=== PATIENT | female | born 1955 | race Caucasian/White ===

== ENCOUNTER → 2016-03-01 | Outpatient (CLI) | payer MEDICARE ==
[~2016-03-01] MED LIST: AMLO5 PO; ATEN1TAB74 PO; ATEN25TA PO; ATEN50TA PO; ATOR10 PO; COUM1TAB PO; DENO60P SQ; DEXI60CA PO; DEXI60CA3 PO; ENOX60P SQ; ENOX80P SQ; ESZO3TAB4 PO; LEVO88TA2 PO; MAGN1TAB14 PO; MAGN500T4 PO; NITR0.4S SL; PLAV75TA PO; PLAV75TA29 PO; PRAV20TA2 PO; TRAM50 PO; TRAM50TA PO; VITA100020 IM
[2016-03-01 11:55] LABS: INTERNATIONAL NORMALIZED RATIO 2.4 RATIO; PROTHROMBIN TIME - PATIENT 27.1 SEC (9.8-11.6)
== END ==
LOC: CLAB 11:28
DX: I82.403 Acute embolism and thrombosis of unspecified deep veins of lower extremity, bilateral (principal)
CPT/HCPCS: 36415; 85610

== ENCOUNTER → 2016-03-17 | Outpatient (CLI) | payer MEDICARE ==
[2016-03-17 15:27] LABS: AUTOMATED NEUTROPHIL # 3.9 TH/MM3 (1.8-7.7); BASOPHIL % 0.5 % (0.0-2.0); EOSINOPHIL # 0.2 TH/MM3 (0-0.4); EOSINOPHIL % 1.9 % (0.0-4.0); HEMATOCRIT 46.7 % (35.0-46.0); HEMO FLAGS DIFF FINAL; LYMPH % 47.4 % (9.0-44.0); LYMPHOCYTE # 4.6 TH/MM3 (1.0-4.8); MEAN CORPUSCULAR HEMOGLOBIN 27.1 PG (27.0-34.0); MEAN CORPUSCULAR HGB CONC 31.5 % (32.0-36.0); MONO % 9.9 % (0.0-8.0); NEUT % 40.3 % (16.0-70.0); PLATELET COUNT 296 TH/MM3 (150-450); RED BLOOD COUNT 5.43 MIL/MM3 (4.00-5.30); RED CELL DISTRIBUTION WIDTH 13.8 % (11.6-17.2); WHITE BLOOD COUNT 9.7 TH/MM3 (4.0-11.0)
[2016-03-17 15:28] LABS: APTT (PATIENT) 46.2 SEC (24.3-30.1); INTERNATIONAL NORMALIZED RATIO 2.4 RATIO; PROTHROMBIN TIME - PATIENT 27.9 SEC (9.8-11.6)
== END ==
LOC: CLAB 12:05
PROVIDERS: ATTEND Internal Medicine Gastroenterology
DX: R93.2 Abnormal findings on diagnostic imaging of liver and biliary tract (principal); R76.8 Other specified abnormal immunological findings in serum; R94.5 Abnormal results of liver function studies; Z01.818 Encounter for other preprocedural examination; Z79.01 Long term (current) use of anticoagulants
CPT/HCPCS: 36415; 85025; 85610; 85730

== ENCOUNTER 2016-03-21 07:50 | Day surgery (SDC) | payer MEDICARE ==
[~2016-03-21] VITALS: Ht 152.4 cm; Wt 70.0 kg
[2016-03-21] VITALS (8 sets, daily range): BP systolic 103–184; BP diastolic 47–94; PULSE 79–94; RESP 20; TEMP 97.6–97.8; O2SAT 97–100
[~2016-03-21 07:50] MED LIST changes: -AMLO5 PO; -ATEN25TA PO; -ATEN50TA PO; -DEXI60CA PO; -ENOX60P SQ; -ENOX80P SQ; -ESZO3TAB4 PO; -MAGN1TAB14 PO; -PLAV75TA29 PO; -PRAV20TA2 PO; -TRAM50TA PO
[2016-03-21] MEDS ORDERED: TRAM50TA PO (08:13)
[2016-03-21] MEDS ORDERED: ATEN50TA PO (08:13)
[2016-03-21] MEDS ORDERED: MAGN1TAB14 PO (08:13)
[2016-03-21] MEDS ORDERED: LEVO88TA2 PO (08:13)
[2016-03-21] MEDS ORDERED: DENO60P SQ (08:13)
[2016-03-21] MEDS ORDERED: NITR0.4S SL (08:13)
[2016-03-21] MEDS ORDERED: DEXI60CA PO (08:13)
[2016-03-21] MEDS ORDERED: COUM1TAB PO (08:13)
[2016-03-21] MEDS ORDERED: PLAV75TA29 PO (08:13)
[2016-03-21] MEDS ORDERED: ENOX60P SQ (08:16)
[2016-03-21 08:51] LABS: INTERNATIONAL NORMALIZED RATIO 1.6 RATIO; PROTHROMBIN TIME - PATIENT 18.1 SEC (9.8-11.6)
[2016-03-21] MEDS ORDERED: LIDOCAINE 1%/EPINEPHrine 1:100,000 SOLN 20 ML VIAL ONE (09:20)
[2016-03-21] MEDS ORDERED: fentaNYL CITRATE 250 MCG/5 ML AMP ONE (09:45)
[2016-03-21] MEDS ORDERED: MIDAZOLAM HCL 5 MG/5 ML VIAL ONE (09:45)
[2016-03-21] MEDS ORDERED: THROMBIN (TOPICAL) 5,000 UNIT VIAL ONE (09:45)
[2016-03-21] MEDS ORDERED: SODIUM CHLOR 0.9% 1000 ML IV SCH (10:00)
--- NOTE | 2016-03-21 12:29 | RADRPT ---
EXAM DATE/TIME: 03/21/2016 10:00 [facility] COMPARISON: No previous studies available for comparison. INDICATIONS : Liver biopsy. Elevated LFT's. Abnormal ultrasound. SEDATION TIME: 20 minutes BIOPSY SITE: Liver MEDICATION(S): 1.) 4 mg midazolam (Versed) IV 2.) 200 mcg fentanyl (Sublimaze) IV DEVICE(S): 1.) 18 gauge BioPince needle MEDICAL HISTORY : Pancreatitis. Deep venous thrombosis. Gastroesophageal reflux disease. Hodgkins lymphoma. SURGICAL HISTORY : Cholecystectomy Splenectomy. ENCOUNTER: Initial ACUITY: 1 day PAIN SCORE: 0/10 LOCATION: Liver A total of one core specimen(s) were obtained and sent to the laboratory for pathologic evaluation. PROCEDURE: 1. CT guided liver biopsy. The patient has asymmetric history of deep venous thrombosis and cardiac stent. INR preprocedure was 1.7 on Lovenox bridge. We had long discussion about holding the medication for one more day. I th ink the risk its leads the benefit. We agreed to proceed. Prior to the procedure informed consent w as obtained. Any appropriate prior imaging studies were reviewed. The site was prepped in a sterile fashion. Full sterile technique was used, including cap, mask, jonah rile gloves and gown and a large sterile sheet. Hand hygiene and 2% chlorhexidine and/or betadine/al cohol prep was utilized per protocol for cutaneous antisepsis. The skin and subcutaneous tissues wer e infiltrated with local anesthetic solution. With CT guidance the previously identified target was localized. Biopsy was performed using the presc ribed needle as above. Adequate hemostasis was obtained with compression at the puncture site. Follow-up CT scan reveals no hemorrhage. The patient tolerated the procedure well and there were no complications. The patient was returned to the Radiology Outpatient Unit in stable condition. CONCLUSION: Uncomplicated CT guided biopsy. Patient has an allergy to morphine and received fentanyl without issues. Bernardo Myrick MD FACR on March 21, 2016 at 12:25 Board Certified Radiologist. This report was verified electronically.
== END 2016-03-21 14:20 | disposition home or self-care (01) ==
LOC: HRAD 07:50 → HRIP 07:51 → EDSTATUS 08:00 → HRAD 14:20
PROVIDERS: ATTEND Internal Medicine Gastroenterology
DX: R93.2 Abnormal findings on diagnostic imaging of liver and biliary tract (principal); Z86.718 Personal history of other venous thrombosis and embolism; Z79.01 Long term (current) use of anticoagulants; I10 Essential (primary) hypertension; C81.90 Hodgkin lymphoma, unspecified, unspecified site
CPT/HCPCS: 47000; 77012; 85610; 85730; 88307; 88313; J2250; J3010

== ENCOUNTER → 2016-04-15 | Outpatient (CLI) | payer MEDICARE ==
[~2016-04-15] MED LIST changes: +AMLO5 PO; -ATEN1TAB74 PO; +ATEN25TA PO; +ATEN50TA PO; -ATOR10 PO; +DEXI60CA PO; -DEXI60CA3 PO; +ENOX60P SQ; +ENOX80P SQ; +ESZO3TAB4 PO; +MAGN1TAB14 PO; -PLAV75TA PO; +PLAV75TA29 PO; +PRAV20TA2 PO; -TRAM50 PO; +TRAM50TA PO; -VITA100020 IM
[2016-04-15 11:05] LABS: PROTHROMBIN TIME - PATIENT 22.7 SEC (9.8-11.6)
== END ==
LOC: CLAB 10:31
DX: I82.403 Acute embolism and thrombosis of unspecified deep veins of lower extremity, bilateral (principal)
CPT/HCPCS: 36415; 85610

== ENCOUNTER → 2016-05-02 | Outpatient (CLI) | payer MEDICARE ==
[2016-05-02 10:33] LABS: AUTOMATED NEUTROPHIL # 3.9 TH/MM3 (1.8-7.7); BASOPHIL # 0.1 TH/MM3 (0-0.2); BASOPHIL % 0.7 % (0.0-2.0); EOSINOPHIL # 0.2 TH/MM3 (0-0.4); EOSINOPHIL % 2.6 % (0.0-4.0); HEMO FLAGS DIFF FINAL; LYMPH % 38.1 % (9.0-44.0); LYMPHOCYTE # 2.9 TH/MM3 (1.0-4.8); MEAN CELL VOLUME 85.3 FL (80.0-100.0); MEAN CORPUSCULAR HEMOGLOBIN 27.5 PG (27.0-34.0); MEAN CORPUSCULAR HGB CONC 32.2 % (32.0-36.0); MONO % 8.3 % (0.0-8.0); NEUT % 50.3 % (16.0-70.0); PLATELET COUNT 339 TH/MM3 (150-450); RED BLOOD COUNT 5.28 MIL/MM3 (4.00-5.30); RED CELL DISTRIBUTION WIDTH 14.8 % (11.6-17.2); WHITE BLOOD COUNT 7.7 TH/MM3 (4.0-11.0)
[2016-05-02 10:36] LABS: INTERNATIONAL NORMALIZED RATIO 1.9 RATIO
[2016-05-02 10:56] LABS: ANION GAP 8 MEQ/L (5-15); AST (GOT) 24 U/L (15-37); BICARBONATE 26.1 MEQ/L (21.0-32.0); BLOOD UREA NITROGEN 16 MG/DL (7-18); CHLORIDE 108 MEQ/L (98-107); GLOMERULAR FILTRATION RATE 63 ML/MIN (>89); GLUCOSE,FASTING 116 MG/DL (74-99); POTASSIUM 4.4 MEQ/L (3.5-5.1); SODIUM (NA) 142 MEQ/L (136-145)
[2016-05-02 11:07] LABS: ALKALINE PHOSPHATASE 63 U/L (45-117); ALT (GPT) 28 U/L (10-53); HDL CHOLESTEROL 61.1 MG/DL (40.0-60.0); LDL CHOLESTEROL 117 MG/DL (0-99); TOTAL BILIRUBIN ADULT 0.4 MG/DL (0.2-1.0)
== END ==
LOC: CLAB 09:51
DX: I82.5Z9 Chronic embolism and thrombosis of unspecified deep veins of unspecified distal lower extremity (principal); I82.403 Acute embolism and thrombosis of unspecified deep veins of lower extremity, bilateral; E78.5 Hyperlipidemia, unspecified; E03.9 Hypothyroidism, unspecified
CPT/HCPCS: 36415; 80053; 80061; 84443; 85025; 85610

== ENCOUNTER → 2016-05-24 | Outpatient (CLI) | payer MEDICARE ==
[2016-05-24 14:28] LABS: INTERNATIONAL NORMALIZED RATIO 2.3 RATIO; PROTHROMBIN TIME - PATIENT 26.5 SEC (9.8-11.6)
== END ==
LOC: CLAB 14:00
DX: I82.403 Acute embolism and thrombosis of unspecified deep veins of lower extremity, bilateral (principal)
CPT/HCPCS: 36415; 85610

== ENCOUNTER 2016-06-04 14:37 | Observation (INO) | payer MEDICARE ==
[2016-06-04] VITALS (7 sets, daily range): BP systolic 162–202; BP diastolic 77–90; PULSE 73–87; RESP 16–19; TEMP 97.6–98.3; O2SAT 95–100
[~2016-06-04] VITALS: Ht 152.4 cm; Wt 70.0 kg
[~2016-06-04 14:37] MED LIST changes: -AMLO5 PO; -ATEN25TA PO; -ENOX80P SQ; -ESZO3TAB4 PO; -MAGN500T4 PO; -PRAV20TA2 PO
--- NOTE | 2016-06-04 15:09 | PD ---
HPI Chief Complaint: Chest Pain Time Seen by Provider: 15:04 Travel History International Travel<30 days: No Contact w/Intl Traveler<30days: No Traveled to known affect area: No History of Present Illness HPI Patient comes in complaining of sharp stabbing substernal chest pain that began yesterday. Pain is worse with exertion. Patient has tried taking her medication and nitroglycerin as well as her acid reflux medication and antacids without improvement of her symptoms. Patient denies any nausea, vomiting, diarrhea, fevers, cough, headache, numbness or tingling anywhere, trauma, back pain, or neck pain. Patient reports 2 previous MIs with stent placement. States this does not feel like her similar heart attack. Patient states she's taken all of her medication as prescribed. 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 Patient reports that her had pneumonia last week. Denies any known sick contacts. Patient's only other reported symptom is his losing her voice. PFSH Past Medical History Hx Anticoagulant Therapy: Yes (COUMADIN, PLAVIX) Asthma: Yes Blood Disorders: Yes (HX OF DVT'S) Anxiety: No Depression: No Heart Rhythm Problems: Yes (EXTRA BEATS) Cancer: Yes (HODGKIN'S LYMPHOMA) Cardiac Catheterization: Yes (STENT) Cardiovascular Problems: Yes (1 STENT) High Cholesterol: Yes Chemotherapy: No Chest Pain: Yes Congestive Heart Failure: No COPD: No Cerebrovascular Accident: No Diabetes: No Diminished Hearing: No Deep Vein Thrombosis: Yes (BILATERAL LOWER EXTS) Endocrine: Yes Gastrointestinal Disorders: Yes (GERD, ULCER) GERD: Yes Glaucoma: No Genitourinary: Yes (KIDNEY STONES) Headaches: Yes Hepatitis: No Hiatal Hernia: No Heparin Induced Thrombocytopen: Yes Hypertension: Yes Immune Disorder: Yes (IMMUNOCOMPROMISED SINCE SPLEEN REMOVED) Implanted Vascular Access Dvce: Yes Kidney Stones: Yes Musculoskeletal: No Neurologic: Yes (NEUROPATHY IN LEGS) Psychiatric: No Reproductive: No Respiratory: Yes (ASTHMA) Immunizations Current: Yes Migraines: Yes Myocardial Infarction: Yes Pancreatitis: Yes Radiation Therapy: Yes Renal Failure: No Seizures: No Sickle Cell Disease: No Sleep Apnea: No Thyroid Disease: Yes (HYPOTHYROID) Ulcer: Yes Menopausal: Yes Past Surgical History Abdominal Surgery: Yes (SPLENCTOMY) AICD: No Appendectomy: No Arteriovenous Shunt: No Body Medical Devices: RODS AND SCREWS IN BACK,SINUS SX (TITANIUM)CLIPS -HODG Cholecystectomy: Yes Coronary Artery Bypass Graft: No Endocrine Surgery: Yes (HODGKINS TUMORS REMOVED) Genitourinary Surgery: Yes (REMOVAL OF KIDNEY STONES) Gynecologic Surgery: Yes (HYSTERECTOMY) Hysterectomy: Yes Insulin Pump: No Joint Replacement: Yes (Rods from s1 and L5) Neurologic Surgery: No Pacemaker: No Other Surgery: Yes (SPLEEN REMOVED, GB REMOVED, HYSTERECTOMY, BACK SURGERY, SINUS SURGERIES, ) Family History Family Myocardial Infarction: Yes (MOTHER HAD A MO) Social History Alcohol Use: No Tobacco Use: No Substance Use: No Allergies-Medications (Allergen,Severity, Reaction): Coded Allergies: Aspirin (Verified Allergy, Severe, ASTHMA, 06/04/16) Compazine (Verified Allergy, Severe, LOSS OF FACIAL MUSCLE CONTROL, 06/04/16 ) Contrast Media (Verified Allergy, Severe, Hives, 06/04/16) Cortisone (Verified Allergy, Severe, Hives, 06/04/16) Percocet (Verified Allergy, Severe, 06/04/16) PT STATES PANCREATITIS Levaquin (Verified Allergy, Mild, AGGRAVATES LIVER, 06/04/16) Morphine (Verified Allergy, Mild, Hives, 06/04/16) LOCALIZED AT INJECTION SITE. Bee Sting (Verified Allergy, Unknown, HIVES AND SWELLING, 06/04/16) Reported Meds & Prescriptions Reported Meds & Active Scripts Active Reported Magnesium 500 Mg Tab 500 Mg PO HS Prolia Inj (Denosumab) 60 Mg/Ml Inj 60 Mg SQ Q180D Nitrostat SL (Nitroglycerin) 0.4 Mg Subl 0.4 Mg SL DIRECTED PRN 1 tablet under the tongue as needed for chest pain. Repeat every 5 minutes for a total of 3 DOSES or call 911 if NO relief. Levothyroxine (Levothyroxine Sodium) 88 Mcg Tab 88 Mcg PO DAILY Tramadol (Tramadol HCl) 50 Mg Tab 50 Mg PO BID PRN Atenolol 50 Mg Tab 50 Mg PO DAILY @ 1800 Dexilant (Dexlansoprazole) 60 Mg Cap 60 Mg PO DAILY Coumadin (Warfarin) 1 Mg Tab 1 Mg PO MOWEFRSA @ 1600 Plavix (Clopidogrel Bisulfate) 75 Mg Tab 75 Mg PO DAILY Review of Systems Except as stated in HPI: all other systems reviewed are Neg Physical Exam Narrative GENERAL: Well-developed, overly nourished, in no acute distress, and non-ill appearing. SKIN: Focused skin assessment warm and dry. HEAD: Atraumatic. Normocephalic. EYES: Pupils equal and round. EOMI. No scleral icterus. No injection or drainage. ENT: No nasal bleeding or discharge. Mucous membranes pink and moist. Posterior pharynx nonerythematous and without exudate. Uvula is midline. NECK: Trachea midline. No JVD. Supple. No nuclear rigidity. No cervical lymphadenopathy. CARDIOVASCULAR: Regular rate and rhythm. No murmur appreciated. RESPIRATORY: No accessory muscle use. No respiratory distress. Clear to auscultation. Breath sounds equal bilaterally. GASTROINTESTINAL: Abdomen soft, non-tender, nondistended. Hepatic and splenic margins not palpable. Normal bowel sounds 4. No pulsatile mass. MUSCULOSKELETAL: No obvious deformities. No clubbing. No cyanosis. No edema. Full range of motion. NEUROLOGICAL: Awake and alert. No obvious cranial nerve deficits. Motor grossly within normal limits. Horse speech. PSYCHIATRIC: Appropriate mood and affect; insight and judgment normal. Data Data Last Documented VS Vital Signs Date Time Temp Pulse Resp B/P Pulse Ox O2 Delivery O2 Flow Rate FiO2 06/04/16 16:58 78 16 173/79 97 Room Air 06/04/16 14:40 98.3 Orders Electrocardiogram (06/04/16 15:02) Basic Metabolic Panel (Bmp) (06/04/16 15:02) Ckmb (Isoenzyme) Profile (06/04/16 15:02) Complete Blood Count With Diff (06/04/16 15:02) Magnesium (Mg) (06/04/16 15:02) Prothrombin Time / Inr (Pt) (06/04/16 15:02) Act Partial Throm Time (Ptt) (06/04/16 15:02) Troponin I (06/04/16 15:02) Chest, Single Ap (06/04/16 15:02) Ecg Monitoring (06/04/16 15:02) Bilateral Bp Monitoring (06/04/16 15:02) Iv Access Insert/Monitor (06/04/16 15:02) Oximetry (06/04/16 15:02) Oxygen Administration (06/04/16 15:02) Vascular Access Team Consult PRN (06/04/16 15:15) Vascular Poc Ultrasound (06/04/16 ) Ondansetron Inj (Zofran Inj) (06/04/16 16:45) Hydromorphone Pf Inj (Dilaudid Pf Inj) (06/04/16 16:45) Sodium Chlorid 0.9% 500 Ml Inj (Ns 500 M (06/04/16 17:45) Consult Cardiology (06/04/16 ) Admit Order (Ed Use Only) (06/04/16 18:11) Place In Observation (06/04/16 ) Vital Signs (Adult) Q4H (06/04/16 18:10) Robotic Toy Inventor / Telemetry .CONTINUOUS (06/04/16 18:10) Intake + Output JOSIAH.QSHIFT (06/04/16 18:10) Diet Heart Healthy (06/04/16 Dinner) Sodium Chloride 0.9% Flush (Ns Flush) (06/04/16 18:15) Sodium Chloride 0.9% Flush (Ns Flush) (06/04/16 21:00) Acetaminophen (Tylenol) (06/04/16 18:15) Ondansetron Inj (Zofran Inj) (06/04/16 18:15) Troponin I (06/04/16 18:10) Troponin I (06/05/16 00:10) Resp Oxygen Lonny C Titrat 1-4 L (06/04/16 ) Heparin Inj (Heparin Inj) (06/04/16 20:00) Naloxone Inj (Narcan Inj) (06/04/16 18:15) Npo After Midnight W/ Po Meds (06/04/16 Dinner) Labs Laboratory Tests Test 06/04/16 16:24 White Blood Count 13.9 TH/MM3 Red Blood Count 5.18 MIL/MM3 Hemoglobin 14.1 GM/DL Hematocrit 42.8 % Mean Corpuscular Volume 82.5 FL Mean Corpuscular Hemoglobin 27.1 PG Mean Corpuscular Hemoglobin 32.9 % Concent Red Cell Distribution Width 14.8 % Platelet Count 320 TH/MM3 Mean Platelet Volume 9.8 FL Neutrophils (%) (Auto) 65.4 % Lymphocytes (%) (Auto) 26.4 % Monocytes (%) (Auto) 7.9 % Eosinophils (%) (Auto) 0.2 % Basophils (%) (Auto) 0.1 % Neutrophils # (Auto) 9.1 TH/MM3 Lymphocytes # (Auto) 3.7 TH/MM3 Monocytes # (Auto) 1.1 TH/MM3 Eosinophils # (Auto) 0.0 TH/MM3 Basophils # (Auto) 0.0 TH/MM3 CBC Comment DIFF FINAL Differential Comment Prothrombin Time 29.2 SEC Prothromb Time International 2.5 RATIO Ratio Activated Partial 32.7 SEC Thromboplast Time Sodium Level 140 MEQ/L Potassium Level 4.5 MEQ/L Chloride Level 106 MEQ/L Carbon Dioxide Level 27.7 MEQ/L Anion Gap 6 MEQ/L Blood Urea Nitrogen 33 MG/DL Creatinine 1.18 MG/DL Estimat Glomerular Filtration 46 ML/MIN Rate Random Glucose 94 MG/DL Calcium Level 9.1 MG/DL Magnesium Level 2.4 MG/DL Total Creatine Kinase 57 U/L Troponin I 0.03 NG/ML MDM Medical Decision Making Medical Screen Exam Complete: Yes Emergency Medical Condition: Yes Interpretation(s) EKG reviewed by Dr. Bañuelos showed a normal sinus rhythm with a ventricular rate 80. No STEMI. Differential Diagnosis Acute cardiac syndrome, atypical chest pain, pneumonia, pericarditis, electrolyte abnormality, other Narrative Course Patient requesting something for pain and states she is unable to take morphine , but has had Dilaudid in the past without any adverse side effects. 173 Patient reassessed reports much improvement of chest pain. Discussed all findings and plan care of with patient, who is agreeable for admission. All questions were answered. Discussed patient with Dr. Goldman, who recommends contacting patient's school operations manager prior to admission. Physician Communication Physician Communication [id number] Bolanos, patient's school operations manager, who recommend inpatient medicine with him as a consult for further evaluation of patient's chest pain today. [id number] Brennan, who is agreeable to admit the patient. Diagnosis Primary Impression: Chest pain Qualified Code: R07.9 - Chest pain, unspecified type Admitting Information Admitting Physician Requests: Observation Condition: Stable Jeremy Rolon Jun 04, 2016 15:09
[2016-06-04] MEDS ORDERED: SODIUM CHLORIDE 0.9% FLUSH 10 ML FLUSH IVF PRN (15:15)
[2016-06-04] MEDS ORDERED: MAGN500T4 PO (15:35)
--- NOTE | 2016-06-04 16:14 | RADRPT ---
EXAM DATE/TIME: 06/04/2016 15:36 [facility] COMPARISON: CHEST SINGLE AP, November 24, 2015, 12:24. INDICATIONS : Chest pain and shortness of breath. MEDICAL HISTORY : Myocardial infarction. Radiation for Hodgkin's. SURGICAL HISTORY : Coronary artery stent. ENCOUNTER: Initial ACUITY: 1 day PAIN SCORE: 5/10 LOCATION: chest FINDINGS: A single view of the chest demonstrates the lungs to be symmetrically aerated without evidence of mas s, infiltrate or effusion. The cardiomediastinal contours are unremarkable. Osseous structures are intact. CONCLUSION: No acute disease. No significant change has occurred. Reid Rich MD on June 04, 2016 at 16:12 Board Certified Radiologist. This report was verified electronically.
[2016-06-04] MEDS ORDERED: ONDANSETRON HCL 4 MG/2 ML VIAL IV PUSH ONE (16:45)
[2016-06-04] MEDS ORDERED: HYDROmorphone HCL PF 1 MG/ML VIAL IV PUSH ONE (16:45)
[2016-06-04 16:48] LABS: AUTOMATED NEUTROPHIL # 9.1 TH/MM3 (1.8-7.7); BASOPHIL % 0.1 % (0.0-2.0); EOSINOPHIL % 0.2 % (0.0-4.0); HEMATOCRIT 42.8 % (35.0-46.0); HEMO FLAGS DIFF FINAL; LYMPH % 26.4 % (9.0-44.0); LYMPHOCYTE # 3.7 TH/MM3 (1.0-4.8); MEAN CELL VOLUME 82.5 FL (80.0-100.0); MEAN CORPUSCULAR HEMOGLOBIN 27.1 PG (27.0-34.0); MEAN CORPUSCULAR HGB CONC 32.9 % (32.0-36.0); MONO % 7.9 % (0.0-8.0); NEUT % 65.4 % (16.0-70.0); PLATELET COUNT 320 TH/MM3 (150-450); RED BLOOD COUNT 5.18 MIL/MM3 (4.00-5.30); RED CELL DISTRIBUTION WIDTH 14.8 % (11.6-17.2); WHITE BLOOD COUNT 13.9 TH/MM3 (4.0-11.0)
[2016-06-04 17:00] LABS: APTT (PATIENT) 32.7 SEC (24.3-30.1); INTERNATIONAL NORMALIZED RATIO 2.5 RATIO; PROTHROMBIN TIME - PATIENT 29.2 SEC (9.8-11.6)
[2016-06-04 17:28] LABS: BICARBONATE 27.7 MEQ/L (21.0-32.0); MAGNESIUM 2.4 MG/DL (1.5-2.5)
[2016-06-04 17:29] LABS: POTASSIUM 4.5 MEQ/L (3.5-5.1)
[2016-06-04] MEDS ORDERED: SODIUM CHLORID 0.9% 500 ML INJ 500 ML IV ONE (17:45)
[2016-06-04] MEDS ORDERED: SODIUM CHLORIDE 0.9% FLUSH 10 ML FLUSH IV FLUSH PRN (18:15)
[2016-06-04] MEDS ORDERED: ONDANSETRON HCL 4 MG/2 ML VIAL IVP PRN (18:15)
[2016-06-04] MEDS ORDERED: NALOXONE HCL 0.4 MG/ML AMP IV PRN (18:15)
[2016-06-04] MEDS ORDERED: ACETAMINOPHEN 325 MG TAB PO PRN (18:15)
[2016-06-04] MEDS ORDERED: HEPARIN SODIUM - SQ 10,000 UNITS/ML VIAL SQ SCH (20:00)
[2016-06-04] MEDS ORDERED: HYDROmorphone HCL PF 1 MG/ML VIAL IV PRN (21:00)
[2016-06-04] MEDS ORDERED: SODIUM CHLOR 0.45% 1000 ML INJ 1,000 ML IV SCH (21:00)
[2016-06-04] MEDS: NITROGLYCERIN 2% OINT 1 GM PACKET TOPICAL SCH (21:13)
[2016-06-05] VITALS (7 sets, daily range): BP systolic 158–160; BP diastolic 72–74; PULSE 68–80; RESP 16–20; TEMP 98.1; O2SAT 95–97
[2016-06-05] MEDS: SODIUM CHLORIDE 0.9% FLUSH 10 ML FLUSH IV FLUSH SCH ×2 (01:16→08:03)
[2016-06-05] MEDS: NITROGLYCERIN 2% OINT 1 GM PACKET TOPICAL SCH ×2 (04:18→08:03)
[2016-06-05] MEDS ORDERED: FAMOTIDINE 20 MG/2 ML VIAL IV PUSH SCH (09:00)
--- NOTE | 2016-06-05 09:05 | MH ---
cc: BOB VILLAR MD DATE OF ADMISSION: 06/04/2016 DATE OF : 1955 CHIEF COMPLAINT Chest time. No travel in the last 30 days. HISTORY OF PRESENT ILLNESS This is a 60-year-old white female who was in her usual state of health up until approximately 2 days ago. She went to the grocery store with her and noted a weak, tired sensation. She did note some aching, went back home and rested and had no further issues. Yesterday the patient started having some midsternal chest pain. She states that the pain became worse when she had any type of exertion but also noted that the pain was non-radiating into any of her extremities or her neck. The patient denies any numbness or tingling sensation. She also denies nausea, vomiting, diarrhea, constipation, no fevers, no headache. The patient has been taking her medications as prescribed which do include Coumadin and Plavix. The patient does have a history of heart problems. She states that she had a stress test approximately a year ago without any other issues. The patient denies any dysuria. The patient also noted that 2 days ago when she had the tired aching sensation that her voice changed and she seemed to be rather hoarse for a period of time but that did clear up on its own. The patient has been taking her acid reflux medication over the past 2 days when her symptoms occur. She did note some mild dizziness when she was up walking in the grocery store two days ago but denies any syncopal episodes. PAST MEDICAL HISTORY Medical history includes: 1. History of DVTs. 2. Cardiac dysrhythmias. 3. [id number] Hodgkin's lymphoma in 1976. 4. Hyperlipidemia. 5. Asthma. 6. GERD. 7. Kidney stones. 8. Headaches. 9. Heparin-induced thrombocytopenia. 10. Hypertension. 11. Immunocompromised with previous removal of spleen. 12. Neuropathy in her legs. 13. Pancreatitis. 14. Hypothyroidism. 15. Degenerative disc disease. PAST SURGICAL HISTORY 1. Splenectomy. 2. Back surgery with rods and screws. Please note that her rods are in S1 and L5. 3. Sinus surgery. 4. Removal of kidney stones. 5. Hysterectomy. 6. Hodgkin's tumors removed. 7. Cholecystectomy. ALLERGIES ASPIRIN, BEE STINGS, COMPEZINE, CONTRAST MEDIA, CORTISONE, LEVAQUIN, MORPHINE, PERCOCET. MEDICATION Reported medications: 1. Magnesium. 2. Prolia injections. 3. Nitroglycerin sublinguinal. 4. Levothyroxine. 5. Tramadol. 6. Atenolol. 7. Dexilant. 8. Coumadin. 9. Plavix. SOCIAL HISTORY The patient is , currently lives with her . No other people in the household. Denies any use of alcohol, tobacco or illicit drugs. REVIEW OF SYSTEMS A 12 point review was done, positives noted that are mentioned in the history of present illness which includes chest pain, some Hoarseness, tired, achy, weak feeling, mild dizziness and exertional chest pain. Other systems negative or unremarkable. PHYSICAL EXAMINATION VITAL SIGNS: Temperature is 98.1, pulse 80, respirations 18, blood pressure 158/74, 02 sat 96, currently on room air. Please note that when the patient came into the emergency room her blood pressure was 174/80. GENERAL: Well-developed, well-nourished white female who looks to be her stated age, resting in the day. She is alert, oriented and a good historian. SKIN: [place], warm and dry. Turgor is normal. HEENT: Atraumatic, normocephalic. PERRLA. No scleral icterus. No drainage. Mucous membranes were pink and moist. NECK: Neck is supple. Trachea is midline. CARDIOVASCULAR: S1, S2. Heart sounds are distant but no murmurs, rubs or gallops appreciated. RESPIRATORY: Essentially clear anteriorly and posteriorly with no wheezes, rales or rhonchi. GI: Abdomen is soft, nontender, nondistended. Active bowel sounds in all four quads. MUSCULOSKELETAL: She moves all of her extremities with purpose. She has no edema. No cyanosis, no clubbing. NEUROLOGIC: Neurologically alert, oriented. Speech is clear and easy to understand. PSYCHIATRIC: Appropriate mood and affect, judgment is normal. DIAGNOSTIC DATA WBC count 13.9, RBC 5.18, hemoglobin 14.1, hematocrit 42.8, platelet count 320. Other abnormals are leukocyte auto 9.1, monocyte auto 1.1. PT/INR is 2.5. Chemistry sodium 140, potassium 4.5, chloride 106, carbon dioxide 27.7. Amnion gap 6, BUN 33, creatinine 1.18, GFR 46, glucose 94, calcium 9.1, mag 2.4. Troponins are 0.03 and 0.02 and 0.04. Total creatinine kinase is 57. IMAGING STUDIES Chest x-ray shows no acute disease. ASSESSMENT/PLAN 1. Chest spine, rule out NE and/or cardiac event. 2. Gastroesophageal reflux disease. 3. Dizziness without syncope. 4. Leukocytosis, unspecified. 5. Hypothyroidism. 6. History of DVT. 7. History of asthma. Our plan is to admit for observation initially and consult cardiology for his expert opinion. The patient does have a significant history of cardiac disease and stents. We will follow for any further testing that needs to be done. Vascular ultrasound has been ordered. Will reconcile her medications. Pain management, bowel management and medications for any nausea, vomiting, headache or symptoms as needed. Place her on a heart healthy diet. Vital signs will be Q-4 and more often as warranted. Nitroglycerin ointment patch placed on the patient. We are going to do a UA to rule out for any UTI. Will monitor the patient's I&O's. In the emergency room the patient did receive a sodium chloride IV bolus, DVT prophylaxis will be with her Coumadin and Plavix. PUD prophylaxis with IV Pepcid added and we will follow her plan based on findings of her hospital course. The patient is full code, full aggressive care. Dictated by: CHUY Rodriguez MD BRONWYN Callejas/[place]LE[place] /8:00 AM /8:22 AM
[2016-06-05 09:10] LABS: BLOOD, URINE NEG (NEG); COMMENT (UR) CULT NOT INDICATED; CULTURE IF INDICATED CULT NOT INDICATED; GLUCOSE,URINE NEG (NEG); KETONE, URINE NEG (NEG); NITRITE,URINE NEG (NEG); PH, URINE 6.5 (5.0-8.5); SQUAMOUS EPITHELIAL CELL URINE <1 /hpf (0-5); URINE COLOR YELLOW (YELLW/STRAW)
[2016-06-05] MEDS ORDERED: amLODIPine BESYLATE 5 MG TAB PO SCH (10:00)
--- NOTE | 2016-06-05 10:23 | MB ---
cc: SERENE BOLANOS M.D. DATE OF CONSULTATION: 06/05/[address] Brennan for asking us to see this very pleasant lady who is well-known to me. HISTORY OF PRESENT ILLNESS She is a 60-year-old white female who started having chest pains about 3 days ago. These were sharp pains on the right side of the chest, it was sharp and multiple. She had similar pains a couple of years ago and had a negative heart cath at that time. In the past she has had left main stenting and therefore we are always a little bit more careful regarding this. She also has some dizziness. She states her blood pressure was elevated. PAST MEDICAL HISTORY Positive for: 1. DVTs. 2. Hodgkin's lymphoma in 1976. 3. Hyperlipidemia. 4. Asthma. 5. Kidney stones. 6. Heparin induced thrombocytopenia. 7. Spleen removal. 8. Neuropathy. 9. Pancreatitis. 10. Hypothyroidism. 11. Degenerative disk disease. 12. She also has a history of radiation to the chest. 13. Back surgery with rods and screws. 14. Kidney stone surgery. 15. Hodgkin's tumor surgery. 16. Cholecystectomy. ALLERGIES BEE STINGS, ASPIRIN, COMPAZINE, CONTRAST MEDIA, LEVAQUIN, MORPHINE, PERCOCET. MEDICATION 1. Prolia. 2. Magnesium. 3. Levothyroxine. 4. Tramadol. 5. Atenolol. 6. Dexilant. 7. Coumadin. 8. Plavix. SOCIAL HISTORY Nonsmoker, nondrinker. No drugs. REVIEW OF SYSTEMS Denies seizure, headaches, vomiting, diarrhea, dysuria or hematuria. Positive for chest pains as above. PHYSICAL EXAMINATION VITAL SIGNS: On examination her pulse was 80, blood pressure 158/74, respirations 18. EYES: No xanthelasma. MOUTH: Shows no cyanosis or pallor. NECK: No JVD. HEART: She had two heart sounds. No murmurs. CHEST: Chest was clear. ABDOMEN: Soft. No hepatosplenomegaly. EXTREMITIES: Legs reveal no cyanosis or edema. NEUROLOGIC: Grossly intact. SKIN: Grossly intact. PSYCHOLOGICAL: No suicidal ideation, etc. IMAGING STUDIES Chest x-ray was negative. LABORATORY DATA Sodium 140, potassium 4.5, creatinine 1.18, INR 2.5. Troponin x3 0.03, 0.02, and 0.04. ASSESSMENT/PLAN 1. Overall the patient has ruled out for significant coronary artery disease. The patient has a very complex history in the past needing left main stenting, etc. From a cardiac perspective and from a noncardiac perspective has had a long history of atypical chest pain, especially given her history of lymphomas and chest radiation. We will therefore treat her medically for now. She will have her blood pressure controlled. Once this is somewhat better she can be discharged later today. Follow up in my office in the next few days/ weeks' time and at that point we will consider outpatient nuclear stress testing, perhaps with a cardiac PET scan. Thank you Dr. Brennan for asking us see this very pleasant lady. NOTE Medications at this time include Famotidine, Dilaudid, nitroglycerin, naloxone p.r.n. Will add amlodipine 5 mg p.o. now and q. Day. Serene Bolanos MD, FRCP,[facility]/[place] /9:41 AM /9:52 AM
--- NOTE | 2016-06-05 10:28 | EKG ---
Date Performed: 06/04/2016 Time Performed: 14:56:12 PTAGE: 60 years EKG: Sinus rhythm VOLTAGE CRITERIA FOR LVH MINIMAL ST DEPRESSION ABNORMAL ECG Compared to prior tracing no significant change PREVIOUS TRACING : 11/24/2015 18.47 DOCTOR: Serene Bolanos Interpretating Date/Time 06/05/2016 10:25:31
[2016-06-05] MEDS ORDERED: LEVOTHYROXINE SODIUM 88 MCG TAB PO SCH (11:00)
[2016-06-05] MEDS ORDERED: CLOPIDOGREL 75 MG TAB PO SCH (11:00)
[2016-06-05] MEDS ORDERED: ATENOLOL 50 MG TAB PO SCH (11:00)
[2016-06-05] MEDS ORDERED: AMLO5 PO (11:59)
--- NOTE | 2016-06-05 12:18 | HHI.HP ---
HPI Service [facility] Primary Care Physician Non-Staff Admission Diagnosis chest pain Diagnoses: Travel History International Travel<30 Days: No Contact w/Intl Traveler <30 Da: No Traveled to Known Affected Are: No Past Family Social History Allergies: Coded Allergies: Aspirin (Verified Allergy, Severe, ASTHMA, 06/04/16) Compazine (Verified Allergy, Severe, LOSS OF FACIAL MUSCLE CONTROL, 06/04/16 ) Contrast Media (Verified Allergy, Severe, Hives, 06/04/16) Cortisone (Verified Allergy, Severe, Hives, 06/04/16) Percocet (Verified Allergy, Severe, 06/04/16) PT STATES PANCREATITIS Levaquin (Verified Allergy, Mild, AGGRAVATES LIVER, 06/04/16) Morphine (Verified Allergy, Mild, Hives, 06/04/16) LOCALIZED AT INJECTION SITE. Bee Sting (Verified Allergy, Unknown, HIVES AND SWELLING, 06/04/16) Physical Exam Vital Signs Vital Signs Date Time Temp Pulse Resp B/P Pulse Ox O2 Delivery O2 Flow Rate FiO2 06/05/16 11:30 68 20 160/72 95 06/05/16 11:03 70 06/05/16 07:57 16 06/05/16 07:41 97 21 06/05/16 07:22 69 06/05/16 04:19 98.1 80 18 158/74 96 06/05/16 02:00 95 21 06/04/16 23:45 76 06/04/16 23:43 98.1 76 19 174/80 95 06/04/16 19:36 97.6 73 18 176/80 97 06/04/16 19:00 73 16 162/77 98 Room Air 06/04/16 16:58 78 16 173/79 97 Room Air 06/04/16 15:15 99 Room Air 06/04/16 15:15 99 Room Air 06/04/16 14:53 79 20 99 Room Air 06/04/16 14:40 98.3 87 19 202/90 100 Room Air Physical Exam GENERAL: This is a well-nourished, well-developed patient, in no apparent distress. SKIN: No rashes, ecchymoses or lesions. Cool and dry. HEAD: Atraumatic. Normocephalic. No temporal or scalp tenderness. EYES: Pupils equal round and reactive. Extraocular motions intact. No scleral icterus. No injection or drainage. ENT: Nose without bleeding, purulent drainage or septal hematoma. Throat without erythema, tonsillar hypertrophy or exudate. Uvula midline. Airway patent. NECK: Trachea midline. No JVD or lymphadenopathy. Supple, nontender, no meningeal signs. CARDIOVASCULAR: Regular rate and rhythm without murmurs, gallops, or rubs. RESPIRATORY: Clear to auscultation. Breath sounds equal bilaterally. No wheezes , rales, or rhonchi. GASTROINTESTINAL: Abdomen soft, non-tender, nondistended. No hepato-splenomegaly , or palpable masses. No guarding. MUSCULOSKELETAL: Extremities without clubbing, cyanosis, or edema. No joint tenderness, effusion, or edema noted. No calf tenderness. Negative Homans sign bilaterally. NEUROLOGICAL: Awake and alert. Cranial nerves II through XII intact. Motor and sensory grossly within normal limits. Five out of 5 muscle strength in all muscle groups. Normal speech. Laboratory Laboratory Tests Test 06/04/16 06/04/16 06/05/16 06/05/16 16:24 21:21 05:10 08:20 White Blood Count 13.9 Red Blood Count 5.18 Hemoglobin 14.1 Hematocrit 42.8 Mean Corpuscular Volume 82.5 Mean Corpuscular Hemoglobin 27.1 Mean Corpuscular Hemoglobin 32.9 Concent Red Cell Distribution Width 14.8 Platelet Count 320 Mean Platelet Volume 9.8 Neutrophils (%) (Auto) 65.4 Lymphocytes (%) (Auto) 26.4 Monocytes (%) (Auto) 7.9 Eosinophils (%) (Auto) 0.2 Basophils (%) (Auto) 0.1 Neutrophils # (Auto) 9.1 Lymphocytes # (Auto) 3.7 Monocytes # (Auto) 1.1 Eosinophils # (Auto) 0.0 Basophils # (Auto) 0.0 CBC Comment DIFF FINAL Differential Comment Prothrombin Time 29.2 Prothromb Time International 2.5 Ratio Activated Partial 32.7 Thromboplast Time Sodium Level 140 Potassium Level 4.5 Chloride Level 106 Carbon Dioxide Level 27.7 Anion Gap 6 Blood Urea Nitrogen 33 Creatinine 1.18 Estimat Glomerular Filtration 46 Rate Random Glucose 94 Calcium Level 9.1 Magnesium Level 2.4 Total Creatine Kinase 57 Troponin I 0.03 0.02 0.04 Urine Color YELLOW Urine Turbidity CLEAR Urine pH 6.5 Urine Specific [place] 1.020 Urine Protein NEG Urine Glucose (UA) NEG Urine Ketones NEG Urine Occult Blood NEG Urine Nitrite NEG Urine Bilirubin NEG Urine Urobilinogen LESS THAN 2.0 Urine Leukocyte Esterase NEG Urine RBC LESS THAN 1 Urine WBC 1 Urine Squamous Epithelial <1 Cells Microscopic Urinalysis Comment CULT NOT INDICATED Result Diagram: 06/04/16 1624 06/04/16 1624 Assessment and Plan Assessment and Plan patient seen and examined Please refer to admission h & P for details Atypical chest pain, resolved now Appreciate Cardiology input ok for discharge and follow up outpatient Amlodipine added for high BP ok to d/c home discussed with patient discussed with nursing staff discussed with Blanca Gee MD Jun 05, 2016 12:18
--- NOTE | 2016-06-05 17:31 | HHI.DS ---
Discharge Summary Admission Date Jun 04, 2016 at 18:13 Discharge Date: Jun 05, 2016 Admitting Diagnosis chest pain Brief History This was a 60-year-old white female who was in her usual state of health up until approximately 2 days ago. She went to the grocery store with her and noted a weak, tired sensation. She did note some aching, went back home and rested and had no further issues. The day before admission, the patient started having some midsternal chest pain. She stated that the pain became worse when she had any type of exertion but also noted that the pain was non-radiating into any of her extremities or her neck. The patient denied any numbness or tingling sensation. She also denied nausea, vomiting, diarrhea, constipation, no fevers, no headache. The patient had been taking her medications as prescribed which do include Coumadin and Plavix. The patient did have a history of heart problems. She stated that she had a stress test approximately a year ago without any other issues. The patient denied any dysuria. The patient also noted that 2 days ago when she had the tired aching sensation that her voice changed and she seemed to be rather hoarse for a period of time but that did clear up on its own. The patient had been taking her acid reflux medication over the past 2 days when her symptoms occur. She did note some mild dizziness when she was up walking in the grocery store two days ago but denied any syncopal episodes. CBC/BMP: 06/04/16 1624 06/04/16 1624 Significant Findings Laboratory Tests Test 06/04/16 16:24 White Blood Count 13.9 TH/MM3 (4.0-11.0) Neutrophils # (Auto) 9.1 TH/MM3 (1.8-7.7) Monocytes # (Auto) 1.1 TH/MM3 (0-0.9) Prothrombin Time 29.2 SEC (9.8-11.6) Activated Partial 32.7 SEC Thromboplast Time (24.3-30.1) Blood Urea Nitrogen 33 MG/DL (7-18) Creatinine 1.18 MG/DL (0.50-1.00) Estimat Glomerular Filtration 46 ML/MIN (>89) Rate Imaging Last Impressions Chest X-Ray 06/04/16 1502 Signed Impressions: Service Date/Time: SaturJune 04, 2016 15:36 - CONCLUSION: No acute disease. No significant change has occurred. Reid Rich MD PE at Discharge Alert and oriented Skin warm and dry Atraumatic normocephalic PERRLA Mucous membranes moist S1 and S2 no murmur Lungs clear to auscultation Abdomen soft nontender Muscle skeletal, no edema Neurologically alert and oriented Hospital Course Patient was initially admitted with chest pain, rule out NM and or cardiac event. Patient also has significant history of GERD, Cardiology consult was initiated, troponins were negative NM was ruled out. Patient has had significant atypical chest pain in the past which may be related to her lymphoma, versus radiation, versus GERD. She did have a negative workup approximately one year ago. It was thought that she was stable to discharge from the hospital and be followed up as an outpatient in 2-3 weeks with cardiology. He then we'll decide what further testing needs to be done which could be a stress test versus a PET scan. Initial lab work and vital signs were evaluated and treated as warranted. She was afebrile Home medications were reconciled. Patient noted no further chest pain during the course of her day. Patient was evaluated per Dr. woo, as well as Kym Allison. DIECAST MACHINE OPERATOR, and cardiology. Patient was stable for discharge. Less than 24 hour stay. Pt Condition on Discharge: Stable Discharge Disposition: Discharge Home Discharge Instructions DIET: Follow Instructions for: Heart Healthy Diet Activities you can perform: Regular-No Restrictions Follow up Referrals: Cardiology - 2 Weeks New Medications: Amlodipine (Norvasc) 5 Mg Tab 5 MG PO DAILY htn #30 TAB Continued Medications: Atenolol (Atenolol) 50 Mg Tab 50 MG PO DAILY @ 1800 Blood Pressure Management #30 Ref 0 TAB Clopidogrel (Plavix) 75 Mg Tab 75 MG PO DAILY Blood Clot Prevention #30 Ref 0 TAB Denosumab Inj (Prolia Inj) 60 Mg/Ml Inj 60 MG SQ Q180D Ref 0 VIAL Dexlansoprazole (Dexilant) 60 Mg Cap 60 MG PO DAILY #30 Ref 0 CAP Levothyroxine (Levothyroxine) 88 Mcg Tab 88 MCG PO DAILY Thyroid #30 Ref 0 TAB Magnesium (Magnesium) 500 Mg Tab 500 MG PO HS Nutritional Supplement Ref 0 TAB Nitroglycerin SL (Nitrostat SL) 0.4 Mg Subl 0.4 MG SL DIRECTED 1 tablet under the tongue as needed for chest pain. Repeat every 5 minutes for a total of 3 DOSES or call 911 if NO relief. PRN CHEST PAIN #100 Ref 0 TAB.SL Tramadol (Tramadol) 50 Mg Tab 50 MG PO BID PRN PAIN Ref 0 TAB Warfarin (Coumadin) 1 Mg Tab 1 MG PO MoWeFrSa @ 1600 Prevent Blood Clot #30 Ref 0 TAB Kym Allison Jun 05, 2016 17:31
== END 2016-06-05 13:01 | disposition home or self-care (01) ==
LOC: NEPE 14:37 → NEDA 18:13 → NEPFCDU 19:37
PROVIDERS: ADMIT Internal Medicine; ATTEND Internal Medicine
DX: R07.2 Precordial pain (principal); R42 Dizziness and giddiness; D72.829 Elevated white blood cell count, unspecified; K21.9 Gastro-esophageal reflux disease without esophagitis; J45.909 Unspecified asthma, uncomplicated; E78.00 Pure hypercholesterolemia, unspecified; I10 Essential (primary) hypertension; G62.9 Polyneuropathy, unspecified; I25.2 Old myocardial infarction; E03.9 Hypothyroidism, unspecified; Z82.49 Family history of ischemic heart disease and other diseases of the circulatory system; Z86.718 Personal history of other venous thrombosis and embolism; Z85.71 Personal history of Hodgkin lymphoma; Z88.5 Allergy status to narcotic agent; Z88.8 Allergy status to other drugs, medicaments and biological substances; Z91.030 Bee allergy status; Z91.041 Radiographic dye allergy status; E78.5 Hyperlipidemia, unspecified; Z79.02 Long term (current) use of antithrombotics/antiplatelets; Z79.01 Long term (current) use of anticoagulants
CPT/HCPCS: 71010; 80048; 81001; 82550; 83735; 84484; 85025; 85610; 85730; 93005; 96374; 96375; 99285; G0378; J1170; J2405; J7040; 76937

== ENCOUNTER → 2016-06-20 | Outpatient (CLI) | payer MEDICARE ==
[~2016-06-20] MED LIST changes: +AMLO5 PO; +ATEN25TA PO; -ENOX60P SQ; +ENOX80P SQ; +ESZO3TAB4 PO; -MAGN1TAB14 PO; +MAGN500T4 PO; +PRAV20TA2 PO
[2016-06-20 13:34] LABS: INTERNATIONAL NORMALIZED RATIO 3.1 RATIO; PROTHROMBIN TIME - PATIENT 36.1 SEC (9.8-11.6)
== END ==
LOC: CLAB 12:49
DX: I82.403 Acute embolism and thrombosis of unspecified deep veins of lower extremity, bilateral (principal)
CPT/HCPCS: 36415; 85610

== ENCOUNTER → 2016-06-29 | Outpatient (CLI) | payer MEDICARE ==
[2016-06-29 11:24] LABS: PROTHROMBIN TIME - PATIENT 22.8 SEC (9.8-11.6)
--- NOTE | 2016-07-18 14:34 | CATHPROC ---
Primordial HIS Report Study Information Study Number Admission Scheduled Start Study Start [id number] 07/15/2016 07/18/2016 07/18/2016 Study Type [place] [facility] Left Heart Cath Cardiac Catheterization Referring Institution Admit Source Facility Department 1 Emergency department [facility] - Scrubbing Machine Operator Physician and Clinical Staff Initial Serene Salmeron Software Integration Developer Jay RN, Candis Welch RCIS TECH2 Scrub Bart Celis RCIS(BS) Procedures Performed Procedure Location (Site) Vessel Name Angiogram LV LV Ventricle Coronary Angiograms LCA Left Coronary Coronary Angiograms RCA Right Coronary Equipment Time General Operator Description Size Mfg Part Number Used/Scraped TRANSDUCER, TRUWAVE 13:09 Belly * [id number] Used W/Plumbr [id number]- INTRODUCER SET, 13:09 [employer]gs [employer]. FR 5 SC-NT-U-SST Used MICROPUNCTURE, STIFFENED *[id number] [id number] *[id number] [id number] *[id number] [id number] *[id number] 13:09 Organically Maid INDUSTRIES PACK, CCL CUSTOM * Used *[id number] 13:09 Organically Maid PACER PEN, SKIN DUAL W/ RULER * [id number] Used [id number] 13:09 ividence WIRE, 3MMJ .035 180CM 180CM Used *[id number] PROBE COVER, STERILE 13:09 Arteris * [id number] Used ULTRASOUND W/ GEL [id number] 13:09 NAMIC MANIFOLD, 4 PORT * Used *[id number] 13:09 NYCOMED OMNIPAQUE, 350 MG, 150ML 150ML [id number] Used 14:06 NYCOMED OMNIPAQUE, 350 MG, 50ML 50ML [id number] Used [id number] 13:09 Lindsey Shell MEDICAL BLANKET,WARM AIR CCL * Used *[id number] 13:09 SmartCare systemUMPro Stream + MEDICAL SHEATH, FR4 TERUMO (10CM) FR 4 [id number] Used History: Current Medications Medication Dosage/Unit Route Frequency Last Date/Time Taken NTG SL Synthroid TRAMADOL Beta Nohelia Coumadin PLAVIX History: Allergies Allergy Reaction Aspirin ASTHMA Bee Sting HIVES AND SWELLING Compazine LOSS OF FACIAL MUSCLE CONTROL Contrast Media Hives Cortisone Hives Levaquin AGGRAVATES LIVER Morphine Hives Percocet History: Risk Factors Family History of Hypertension Dyslipidemia Previous IL Previous Heart Failure Premature CAD Yes Yes Yes Yes No Prior Valve Prior PCI Prior PCIDate Prior CABG Surgery Yes Yes 10/09/2013 No Cerebrovascular Peripheral Artery Chronic Lung On Dialysis Diabetes Disease Disease Disease No No No Yes No History: Symptoms/Diagnosis Selection Items Chest pain History: CV Disease Selection Items Known CAD History: Stress Tests Stress or Imaging Studies Performed No History: Other Disease Selection Items Cancer Gerd History: Other Current Smoker No Labs Hgb (g/dl) Hct (%) WBC (l/cumm) Platelets (thousands) 12.00-18.00 37.00-55.00 4.80-10.80 140.00-450.00 13.0 41.7 10.9 288 Glucose (mg/dl) BUN (mg/dl) Creatinine (mg/dl) BUN:Creatinine (1:x) 60.00-110.00 8.00-20.00 0.10-9.00 10.00-20.00 105 20 0.9 22.2 Na (meq/l) K (meq/l) 138.00-146.00 3.80-5.10 141 4.6 INR (PTT:PT) 0.50-2.00 1.5 Troponin I (ng/ml) CPK (u/l) CPK-MB (ng/ML) 0.40-2.30 37.00-289.00 0.00-7.00 0.03 151 0.9 Medication Medication Total Dose (Bolus/Oral) Medication Total Dosage/Unit 1% XYLOCAINE 20 mL FENTANYL 75 mcg LABETOLOL 20 mg SOLU-CORTEF 100 mg VERSED 3 mg Medications (Bolus/Oral) Medication Time Given Dosage/Unit Administered By Reason 1% XYLOCAINE 07/18/2016 1:51:48 PM 20 mL Serene Bolanos 20 mL 1% XYLOCAINE given in lab by Serene Bolanos in Right Groin via Subcutaneous. FENTANYL 07/18/2016 1:52:19 PM 50 mcg Dominic Thompson RN 50 mcg FENTANYL given in lab by Dominic Thompson RN in Left Forearm via Peripheral IV. Ordered by Serene Bolanos. VERSED 07/18/2016 1:52:56 PM 2 mg Dominic Thompson RN 2 mg VERSED given in lab by Dominic Thompson RN via Peripheral IV. Ordered by Serene Bolanos. SOLU-CORTEF 07/18/2016 1:58:50 PM 100 mg Dominic Thompson RN 100 mg SOLU-CORTEF given in lab by Dominic Thompson RN in Left Forearm via Peripheral IV. Ordered by Serene Puri. VERSED 07/18/2016 1:59:00 PM 1 mg Dominic Thompson RN 1 mg VERSED given in lab by Dominic Thompson RN via Peripheral IV. Ordered by Serene Bolanos. FENTANYL 07/18/2016 2:00:25 PM 25 mcg Dominic Thompson RN 25 mcg FENTANYL given in lab by Dominic Thompson RN in Left Forearm via Peripheral IV. Ordered by Serene Bolanos. LABETOLOL 07/18/2016 2:07:58 PM 20 mg Dominic Thompson RN 20 mg LABETOLOL given in lab by Dominic Thompson RN in Left Forearm via Peripheral IV. Ordered by Serene Bolanos. Medication (Drip) Medication Time Given Dosage/Unit Concentration/Unit Diluent (ml) Solution IV Solutions 07/18/2016 12:46:52 PM 0 mL (IV) 500 NaCl .9 Patient arrived on IV Solutions given by Dominic Thompson RN in Left Forearm via Peripheral IV. Pump/Drip Flow = 20 ml/hr using NaCl .9. Initial Case Assessment Cardiovascular HR Rhythm NIBP Chest Pain 83 sr 193/92 0 Circulatory - Right Pulses Dorsalis Pedis Femoral 1 2 Scale (0,1,2,3,4,d) Circulatory - Left Pulses Dorsalis Pedis Femoral 1 2 Scale (0,1,2,3,4,d) Neurological State Oriented to time-place- Alert Moves all extremities person Respiration - General Respiration Rate SpO2 (%) (B/min) 12 100 Final Case Assessment Cardiovascular HR Rhythm NIBP Chest Pain 95 sr 150/84 0 Circulatory - Right Pulses Dorsalis Pedis Femoral 1 2 Scale (0,1,2,3,4,d) Circulatory - Left Pulses Dorsalis Pedis Femoral 1 2 Scale (0,1,2,3,4,d) Neurological State Oriented to time-place- Alert Moves all extremities person Respiration - General Respiration Rate SpO2 (%) (B/min) 13 99 Chronological Log Time Study Chronological Log 12:44:00 Patient arrived via Bed. 12:44:04 Patient Name, D.O.B, / Armband Verified By R.N. 12:46:20 Consent signed by the physician and the patient and verified by the Scrubbing Machine Operator staff. 12:46:20 Pre-op and post- op instructions given; patient acknowledges understanding of instructions. 12:46:21 Verbal Stimulation=2 Physical Stimulation=2 Airway=2 Respiration=2 TOTAL=8. (0=absent, 1=li mited, 2=present) 12:46:35 Presedation assessment performed by Scrubbing Machine Operator RN. 12:46:38 Patient has been NPO for More than 6Hrs. 12:46:39 Skin Breakdown-none 12:46:40 Mayito Prominences Protected 12:46:43 A # 20 IV was noted in the Forearm (left). Grade = 0 Patient arrived on IV Solutions given by Dominic Thompson RN in Left Forearm via Peripheral IV. Pum p/Drip Flow = 20 ml/hr 12:46:52 using NaCl .9. 12:47:20 History and physical on the chart or being dictated. Vitals capture started with the following parameters, Patient=Adult, Interval=5 min, Initial Pr umjykp=139 mmHg, 12:47:38 Deflation Rate=5 mmHg 12:49:02 HR=86 bpm, OOSR=790/97 mmhg, IrP0=487.0 %, Resp=6 B/min, Pain=0, Anais=10, Rivera=2 12:51:41 Reference ECG taken 12:53:26 HR=85 bpm, FXLB=068/92 mmhg, SxP9=459.0 %, Resp=11 B/min, Pain=0, Rivera=2 Assessment: Initial Case, HR=83 BPM, Rhythm=sr, JGKR=129/92 mmhg, Chest Pain=0 Right Pulses: Nahid Ped=1, Femoral=2 12:54:00 Left Pulses: Nahid Ped=1, Femoral=2 Neurological: State=Alert, Ox3, ROTHMAN Respiration: Resp=12 B/min, UfI6=722 % 12:58:27 HR=84 bpm, IIYZ=265/97 mmhg, NeS6=380.0 %, Resp=11 B/min 13:01:21 Bilateral groins prepped with 2% chlorhexidine, and draped after a 3 min. waiting time. 13:02:41 Pressure channel 1 zeroed. 13:03:28 HR=84 bpm, SWSM=398/92 mmhg, SpO2=99.0 %, Resp=11 B/min 13:08:27 HR=81 bpm, ZDRE=281/90 mmhg, SpO2=99.0 %, Resp=13 B/min 13:08:37 paged 13:13:28 HR=82 bpm, WERD=288/92 mmhg, SpO2=99.0 %, Resp=11 B/min 13:18:27 HR=81 bpm, IIGT=818/87 mmhg, SpO2=99.0 %, Resp=15 B/min 13:23:33 HR=78 bpm, KIHL=090/82 mmhg, SpO2=98.0 %, Resp=11 B/min 13:28:30 HR=82 bpm, AJFI=065/85 mmhg, IjE5=271.0 %, Resp=16 B/min 13:33:29 HR=87 bpm, MZKL=341/90 mmhg, SpO2=99.0 %, Resp=8 B/min 13:38:28 HR=88 bpm, FDGB=286/96 mmhg, ZnU0=846.0 %, Resp=12 B/min 13:43:35 HR=82 bpm, ZIAX=949/81 mmhg, SpO2=99.0 %, Resp=11 B/min 13:46:43 MD arrived. 13:46:47 The physician was 40 minutes late. 13:48:28 HR=93 bpm, IIBB=527/106 mmhg, AiZ1=125.0 %, Resp=15 B/min Time Out. Correct patient, correct procedure, correct physician, power injector not loaded with contrast with surgical 13:51:02 team present. Time Out Concurred by , individual staff in procedure 13::43 Case Start 13:51:48 20 mL 1% XYLOCAINE given in lab by Serene Bolanos in Right Groin via Subcutaneous. 13:52:19 50 mcg FENTANYL given in lab by Dominic Thompson RN in Left Forearm via Peripheral IV. Ordered by Serene Bolanos. 13:52:56 2 mg VERSED given in lab by Dominic Thompson RN via Peripheral IV. Ordered by Serene Bolanos. 13:53:29 HR=96 bpm, UAOH=372/96 mmhg, LuE6=017.0 %, Resp=18 B/min 13:53:40 Access site was Right Femoral Artery. A JL 4.0 INFINITI CATHETER FR 4 was advanced over a wire. OMNIPAQUE, 350 MG, 150ML 150ML was us ed for 13:54:56 injections. Recorded Pressure: Ao, HR=91, Condition=Condition 1 13:56:17 (Aorta) Ao 196/81/131 13:56:57 The LCA was injected and visualized at various angles. OMNIPAQUE, 350 MG, 150ML 150ML used . 13:58:32 HR=93 bpm, PDHF=619/87 mmhg, ExC9=523.0 %, Resp=17 B/min 13:58:50 100 mg SOLU-CORTEF given in lab by Dominic Thompson RN in Left Forearm via Peripheral IV. Order ed by Serene Bolanos. 13:59:00 1 mg VERSED given in lab by Dominic Thompson RN via Peripheral IV. Ordered by Serene Bolanos. 14:00:25 25 mcg FENTANYL given in lab by Dominic Thompson RN in Left Forearm via Peripheral IV. Ordered by Serene Bolanos. After removing the current catheter a 3DRC INFINITI CATHETER FR 4 was advanced over a WIRE, 3MM J .035 180CM 14:00:47 180CM. 14:01:54 The RCA was injected and visualized at various angles. OMNIPAQUE, 350 MG, 150ML 150ML used . 14:03:27 HR=91 bpm, RCBX=617/88 mmhg, PiD4=170.0 %, Resp=21 B/min 14:03:52 Catheter was removed After removing the current catheter a PIGTAIL ANG. INFINITI CATHETER FR 4 was advanced over a W RUPERTO, 3MMJ .035 14:04:24 180CM 180CM. Recorded Pressure: LV, HR=93, Condition=Condition 1 14:04:56 (Left Ventricle) LV 193/9/24 14:05:41 The LV was injected at 8 cc/sec for a total of 32. OMNIPAQUE, 350 MG, 50ML 50ML used. Recorded Pressure: LV, Ao, HR=96, Condition=Condition 1 14:06:08 (Left Ventricle) LV 188/13/30, (Aorta) Ao 215/63/123 14:07:34 Catheter was removed 14:07:58 20 mg LABETOLOL given in lab by Dominic Thompson RN in Left Forearm via Peripheral IV. Ordered by Sernee Bolanos. 14:08:30 HR=96 bpm, HNTJ=476/81 mmhg, NoF7=593.0 %, Resp=15 B/min 14:10:22 Case End 14:13:25 HR=96 bpm, HCQU=057/81 mmhg, ZqS4=045.0 %, Resp=13 B/min 14:13:51 Sheath removed; pressure applied to access site. 14:18:28 HR=95 bpm, IONT=053/77 mmhg, SpO2=99.0 %, Resp=12 B/min 14:23:27 HR=93 bpm, WTCS=288/76 mmhg, SpO2=98.0 %, Resp=14 B/min 14:28:28 HR=95 bpm, IKCB=763/84 mmhg, SpO2=99.0 %, Resp=13 B/min 14:30:54 Hemostasis obtained. 14:31:34 Sterile dressing applied to site 14:31:46 No case complications noted. 14:31:47 Cine recording checked. Assessment: Final Case, HR=95 BPM, Rhythm=sr, CYDD=630/84 mmhg, Chest Pain=0 Right Pulses: Nahid Ped=1, Femoral=2 14:31:50 Left Pulses: Nahid Ped=1, Femoral=2 Neurological: State=Alert, Ox3, ROTHMAN Respiration: Resp=13 B/min, SpO2=99 % 14:34:25 Patient moved to bed 14:34:38 Bedside Report will be given. 14:35:07 Patient transported to [facility] End Study - Contrast Media Used In Study Contrast Total Opened (mL) Total Used (mL) Total Wasted (mL) Omnipaque 70 70 0 End Study - Maximum Contrast Load Max Contrast Load (mL) 383.3 End Study - Radiation Exposure Fluoro Time (minutes) 2.1 End Study - Sheaths Sheaths Pulled By Sheath Hold Time (min) Bart Celis 16 End Study - Patient Disposition Complications Transferred To Telemetry Bed
== END ==
LOC: CLAB 10:33
DX: I82.403 Acute embolism and thrombosis of unspecified deep veins of lower extremity, bilateral (principal)
CPT/HCPCS: 36415; 85610

== ENCOUNTER → 2016-07-08 | Outpatient (CLI) | payer MEDICARE ==
[2016-07-08 10:33] LABS: INTERNATIONAL NORMALIZED RATIO 2.1 RATIO; PROTHROMBIN TIME - PATIENT 24.3 SEC (9.8-11.6)
== END ==
LOC: CLAB 09:51
DX: I82.403 Acute embolism and thrombosis of unspecified deep veins of lower extremity, bilateral (principal)
CPT/HCPCS: 36415; 85610

== ENCOUNTER 2016-07-14 13:35 | Inpatient (IN) | payer MEDICARE ==
[~2016-07-14] VITALS: Ht 167.6 cm; Wt 70.9 kg
[2016-07-14] VITALS (13 sets, daily range): BP systolic 131–199; BP diastolic 71–90; PULSE 77–98; RESP 16–24; TEMP 97.6–97.8; O2SAT 91–100
[~2016-07-14 13:35] MED LIST changes: -ATEN25TA PO; -ENOX80P SQ; -ESZO3TAB4 PO; -PRAV20TA2 PO
--- NOTE | 2016-07-14 14:03 | PD ---
HPI Chief Complaint: Chest Pain Time Seen by Provider: 13:40 Travel History International Travel<30 days: No Contact w/Intl Traveler<30days: No Traveled to known affect area: No History of Present Illness HPI 60-year-old female with history of coronary artery disease, DVT on Coumadin, Hodgkin's lymphoma 1977, hyperlipidemia who presents via EMS for evaluation of chest pain. Symptoms started 30 minutes prior to arrival while at [facility]. She reports that she was lifting some water when she began expressing sharp right-sided chest pain which is constant, somewhat alleviated with the use of 2 nitroglycerin at home. She does endorse some nausea and diaphoresis as well. She has had similar pain in the past but this seems to be worse. It appears that this patient was admitted for similar right-sided chest pain in early May. She saw her presto log operator Dr. Bolanos at that time and per his notes she appears to have a long history of atypical chest pain and recommended medical management. Her last cardiac catheterization on file was April 2014 which was essentially unremarkable. No other complaints. PFSH Past Medical History Hx Anticoagulant Therapy: Yes (COUMADIN, PLAVIX) Asthma: Yes Blood Disorders: Yes (HX OF DVT'S) Anxiety: No Depression: No Heart Rhythm Problems: Yes (EXTRA BEATS) Cancer: Yes (HODGKIN'S LYMPHOMA) Cardiac Catheterization: Yes (STENT) Cardiovascular Problems: Yes (1 STENT) High Cholesterol: Yes Chemotherapy: No (radiation) Chest Pain: Yes Congestive Heart Failure: No COPD: No Cerebrovascular Accident: No Diabetes: No (borderline) Diminished Hearing: No Deep Vein Thrombosis: Yes (BILATERAL LOWER EXTS) Endocrine: Yes Gastrointestinal Disorders: Yes (GERD, ULCER) GERD: Yes Glaucoma: No Genitourinary: Yes (KIDNEY STONES) Headaches: Yes Hepatitis: No Hiatal Hernia: No Heparin Induced Thrombocytopen: Yes Hypertension: Yes Immune Disorder: Yes (IMMUNOCOMPROMISED SINCE SPLEEN REMOVED) Implanted Vascular Access Dvce: Yes Kidney Stones: Yes Musculoskeletal: No Neurologic: Yes (NEUROPATHY IN LEGS) Psychiatric: No Reproductive: No Respiratory: Yes (PE) Immunizations Current: Yes Migraines: Yes Myocardial Infarction: Yes Pancreatitis: Yes Radiation Therapy: Yes Renal Failure: No Seizures: No Sickle Cell Disease: No Sleep Apnea: No Thyroid Disease: Yes (HYPOTHYROID) Ulcer: Yes ?: Not Menopausal: Yes Past Surgical History Abdominal Surgery: Yes (SPLENCTOMY) AICD: No Appendectomy: No Arteriovenous Shunt: No Body Medical Devices: RODS AND SCREWS IN BACK,SINUS SX (TITANIUM)CLIPS -HODG, stents Cholecystectomy: Yes Coronary Artery Bypass Graft: No Endocrine Surgery: Yes (HODGKINS TUMORS REMOVED) Genitourinary Surgery: Yes (REMOVAL OF KIDNEY STONES) Gynecologic Surgery: Yes (HYSTERECTOMY) Hysterectomy: Yes Insulin Pump: No Joint Replacement: Yes (Rods from s1 and L5) Neurologic Surgery: No Pacemaker: No Other Surgery: Yes (SPLEEN REMOVED, GB REMOVED, HYSTERECTOMY, BACK SURGERY, SINUS SURGERIES, ) Social History Alcohol Use: No Tobacco Use: No Substance Use: No Allergies-Medications (Allergen,Severity, Reaction): Coded Allergies: Aspirin (Verified Allergy, Severe, ASTHMA, 06/04/16) Compazine (Verified Allergy, Severe, LOSS OF FACIAL MUSCLE CONTROL, 06/04/16 ) Contrast Media (Verified Allergy, Severe, Hives, 06/04/16) Cortisone (Verified Allergy, Severe, Hives, 06/04/16) Percocet (Verified Allergy, Severe, 06/04/16) PT STATES PANCREATITIS Levaquin (Verified Allergy, Mild, AGGRAVATES LIVER, 06/04/16) Morphine (Verified Allergy, Mild, Hives, 06/04/16) LOCALIZED AT INJECTION SITE. Bee Sting (Verified Allergy, Unknown, HIVES AND SWELLING, 06/04/16) Reported Meds & Prescriptions Reported Meds & Active Scripts Active Reported Lunesta (Eszopiclone) 3 Mg Tab 3 Mg PO HS PRN Magnesium 500 Mg Tab 500 Mg PO HS Prolia Inj (Denosumab) 60 Mg/Ml Inj 60 Mg SQ Q180D Nitrostat SL (Nitroglycerin) 0.4 Mg Subl 0.4 Mg SL DIRECTED PRN 1 tablet under the tongue as needed for chest pain. Repeat every 5 minutes for a total of 3 DOSES or call 911 if NO relief. Levothyroxine (Levothyroxine Sodium) 88 Mcg Tab 88 Mcg PO DAILY Tramadol (Tramadol HCl) 50 Mg Tab 50 Mg PO BID PRN Atenolol 50 Mg Tab 50 Mg PO DAILY @ 1800 Dexilant (Dexlansoprazole) 60 Mg Cap 60 Mg PO DAILY Coumadin (Warfarin) 1 Mg Tab 1 Mg PO MOWEFRSA @ 1600 Plavix (Clopidogrel Bisulfate) 75 Mg Tab 75 Mg PO DAILY Review of Systems Except as stated in HPI: all other systems reviewed are Neg Physical Exam Narrative GENERAL: Well-developed well-nourished female in no acute distress SKIN: Warm and dry. HEAD: Atraumatic. Normocephalic. EYES: Pupils equal and round. No scleral icterus. No injection or drainage. ENT: No nasal bleeding or discharge. Mucous membranes pink and moist. NECK: Trachea midline. No JVD. CARDIOVASCULAR: Regular rate and rhythm. No murmur appreciated. RESPIRATORY: No accessory muscle use. Clear to auscultation. Breath sounds equal bilaterally. GASTROINTESTINAL: Abdomen soft, non-tender, nondistended. Hepatic and splenic margins not palpable. MUSCULOSKELETAL: No obvious deformities. No lower extremity edema. NEUROLOGICAL: Awake and alert. No obvious cranial nerve deficits. Motor grossly within normal limits. Normal speech. PSYCHIATRIC: Appropriate mood and affect; insight and judgment normal. Data Data Last Documented VS Vital Signs Date Time Temp Pulse Resp B/P Pulse Ox O2 Delivery O2 Flow Rate FiO2 07/14/16 19:28 87 16 131/71 91 Nasal Cannula 4 07/14/16 13:54 97.6 Orders Electrocardiogram (07/14/16 13:41) Basic Metabolic Panel (Bmp) (07/14/16 13:41) Ckmb (Isoenzyme) Profile (07/14/16 13:41) Complete Blood Count With Diff (07/14/16 13:41) Magnesium (Mg) (07/14/16 13:41) Prothrombin Time / Inr (Pt) (07/14/16 13:41) Act Partial Throm Time (Ptt) (07/14/16 13:41) Troponin I (07/14/16 13:41) Chest, Single Ap (07/14/16 13:41) Ecg Monitoring (07/14/16 13:41) Bilateral Bp Monitoring (07/14/16 13:41) Iv Access Insert/Monitor (07/14/16 13:41) Oximetry (07/14/16 13:41) Oxygen Administration (07/14/16 13:41) Sodium Chloride 0.9% Flush (Ns Flush) (07/14/16 13:45) Vascular Access Team Consult/P PRN (07/14/16 14:04) Nitroglycerin Sl (Nitrostat Sl) (07/14/16 14:45) Hydromorphone Pf Inj (Dilaudid Pf Inj) (07/14/16 14:45) Hydromorphone Pf Inj (Dilaudid Pf Inj) (07/14/16 15:00) Vascular Poc Ultrasound (07/14/16 ) Hydromorphone Pf Inj (Dilaudid Pf Inj) (07/14/16 15:30) CKMB (07/14/16 15:35) CKMB% (07/14/16 15:35) Troponin I (07/14/16 18:35) Electrocardiogram (07/14/16 18:35) Hydromorphone Pf Inj (Dilaudid Pf Inj) (07/14/16 19:15) Ondansetron Inj (Zofran Inj) (07/14/16 19:30) Nitroglycerin 2% Oint (Nitroglycerin 2% (07/14/16 19:30) Admit Order (Ed Use Only) (07/14/16 20:05) Labs Laboratory Tests Test 07/14/16 07/14/16 15:35 18:20 White Blood Count 13.3 TH/MM3 Red Blood Count 4.72 MIL/MM3 Hemoglobin 12.5 GM/DL Hematocrit 39.7 % Mean Corpuscular Volume 84.2 FL Mean Corpuscular Hemoglobin 26.4 PG Mean Corpuscular Hemoglobin 31.3 % Concent Red Cell Distribution Width 15.7 % Platelet Count 264 TH/MM3 Mean Platelet Volume 9.1 FL Neutrophils (%) (Auto) % Lymphocytes (%) (Auto) % Monocytes (%) (Auto) % Eosinophils (%) (Auto) % Basophils (%) (Auto) % Neutrophils # (Auto) TH/MM3 Lymphocytes # (Auto) TH/MM3 Monocytes # (Auto) TH/MM3 Eosinophils # (Auto) TH/MM3 Basophils # (Auto) TH/MM3 CBC Comment AUTO DIFF Differential Total Cells 100 Counted Neutrophils % (Manual) 69 % Band Neutrophils % 2 % Lymphocytes % 22 % Monocytes % 7 % Neutrophils # (Manual) 9.4 TH/MM3 Differential Comment FINAL DIFF MANUAL Atypical Lymphocytes % Platelet Estimate NORMAL Platelet Morphology Comment NORMAL Target Cells 1+ Ovalocytes 1+ Prothrombin Time 18.1 SEC Prothromb Time International 1.6 RATIO Ratio Activated Partial 25.8 SEC Thromboplast Time Sodium Level 142 MEQ/L Potassium Level 5.3 MEQ/L Chloride Level 109 MEQ/L Carbon Dioxide Level 26.1 MEQ/L Anion Gap 7 MEQ/L Blood Urea Nitrogen 35 MG/DL Creatinine 1.13 MG/DL Estimat Glomerular Filtration 49 ML/MIN Rate Random Glucose 78 MG/DL Calcium Level 8.6 MG/DL Magnesium Level 2.6 MG/DL Total Creatine Kinase 151 U/L Creatine Kinase MB 0.9 NG/ML Troponin I 0.03 NG/ML 0.05 NG/ML MDM Medical Decision Making Medical Screen Exam Complete: Yes Emergency Medical Condition: Yes Medical Record Reviewed: Yes Differential Diagnosis Acute coronary syndrome, unstable angina, myocarditis, pericarditis, aortic dissection, pulmonary embolism, pneumothorax, hemothorax, pneumonia Narrative Course 60-year-old female with known history of coronary disease presents with 30 minutes of right-sided sharp chest pain, nausea, diaphoresis. Twelve-lead EKG was immediately obtained and interpreted, the patient was placed on ECG monitoring pulse oximetry. Plan is for lab work, chest x-ray. The patient's initial lab work and imaging studies have been reviewed. Troponin and CK are within normal limits. Discussed with Dr. Lake who is on-call for the patient's presto log operator Dr. Bolanos. He recommends second set of troponin and if flat then the patient can be discharged home with close outpatient follow-up. INR is subtherapeutic at 1.6. Unfortunately the patient's second troponin was 0.05 and therefore the patient will be admitted for serial cardiac enzymes and rule out purposes, likely cardiology consult. The patient is agreeable with this. Discussed with Dr. Muro who is agreeable with admission. Procedures EKG Prior to Arrival: Yes Diagnosis Primary Impression: Chest pain Qualified Code: R07.89 - Other chest pain Admitting Information Admitting Physician Requests: Ahsan Merrill July 14, 2016 14:02
--- NOTE | 2016-07-14 14:04 | PD ---
Physical Exam Date Seen by Provider: July 14, 2016 Time Seen by Provider: 14:01 Narrative SEEN PATIENT WITH MICHELINE FORTUNE, WHILE AT [facility], RELIEVED WITH NTG, SUBSTERNAL, NONRAD, DR WAKEFIELD IS HER AERONAUTICAL ENGINEERING OFFICER AND HAS H/O OF LAD STENT AT [facility], [facility], AND STATES SHE HAD A STRESS TEST LAST YEAR. CURRENTLY PAIN STILL PRESENT, STATES MORPHINE MAKES HER REALLY ITCHY AND HIVES BUT IS OK WITH DILAUDID Data Data Last Documented VS Vital Signs Date Time Temp Pulse Resp B/P Pulse Ox O2 Delivery O2 Flow Rate FiO2 07/14/16 14:43 98 Room Air 07/14/16 14:17 79 183/83 07/14/16 13:57 22 07/14/16 13:54 97.6 Orders Electrocardiogram (07/14/16 13:41) Basic Metabolic Panel (Bmp) (07/14/16 13:41) Ckmb (Isoenzyme) Profile (07/14/16 13:41) Complete Blood Count With Diff (07/14/16 13:41) Magnesium (Mg) (07/14/16 13:41) Prothrombin Time / Inr (Pt) (07/14/16 13:41) Act Partial Throm Time (Ptt) (07/14/16 13:41) Troponin I (07/14/16 13:41) Chest, Single Ap (07/14/16 13:41) Ecg Monitoring (07/14/16 13:41) Bilateral Bp Monitoring (07/14/16 13:41) Iv Access Insert/Monitor (07/14/16 13:41) Oximetry (07/14/16 13:41) Oxygen Administration (07/14/16 13:41) Sodium Chloride 0.9% Flush (Ns Flush) (07/14/16 13:45) Vascular Access Team Consult/P PRN (07/14/16 14:04) Nitroglycerin Sl (Nitrostat Sl) (07/14/16 14:45) Hydromorphone Pf Inj (Dilaudid Pf Inj) (07/14/16 14:45) Hydromorphone Pf Inj (Dilaudid Pf Inj) (07/14/16 15:00) Vascular Poc Ultrasound (07/14/16 ) [facility] Medical Record Reviewed: Yes Supervised Visit with BALTAZAR: Yes Narrative Course THERE WAS A DELAY DUE TO DIFFICULT ACCESS, VASCULAR CONSULT FOR ULTRS GUIDED PLACEMENT, WHICH WAS SUCCESSFULLY DONE AT 1520, PT TO HAVE BLOOD WORK SENT AND ADDITIONAL PAIN MEDICATION GIVEN AT THIS TIME Diagnosis Primary Impression: Chest pain Qualified Code: R07.89 - Other chest pain Admitting Information Admitting Physician Requests: Observation Win Tai MD July 14, 2016 14:04
--- NOTE | 2016-07-14 14:10 | RADRPT ---
EXAM DATE/TIME: 07/14/2016 13:38 [facility] COMPARISON: No previous studies available for comparison. INDICATIONS : Chest pain MEDICAL HISTORY : Myocardial infarction. Radiation for Hodgkin's. SURGICAL HISTORY : Coronary artery stent. ENCOUNTER: Initial ACUITY: 1 day PAIN SCORE: 6/10 LOCATION: Bilateral chest FINDINGS: A single view of the chest demonstrates the lungs to be symmetrically aerated without evidence of mas s, infiltrate or effusion. The cardiomediastinal contours are unremarkable. Osseous structures are intact. CONCLUSION: Normal examination. Persistent mild right thoracic scoliosis. Surgical clips scattered across the up per abdomen. Francisco Ontiveros MD on July 14, 2016 at 14:08 Board Certified Radiologist. This report was verified electronically.
[2016-07-14] MEDS ORDERED: HYDROmorphone HCL PF 1 MG/ML VIAL IV PUSH ONE ×3 (14:45→19:15)
[2016-07-14] MEDS ORDERED: NITROGLYCERIN 0.4 MG SL 25 TABS/BTL SL ONE (14:45)
[2016-07-14] MEDS ORDERED: HYDROmorphone HCL PF 1 MG/ML VIAL IM ONE (15:00)
[2016-07-14 15:51] LABS: HEMATOCRIT 39.7 % (35.0-46.0); MEAN CELL VOLUME 84.2 FL (80.0-100.0); MEAN CORPUSCULAR HEMOGLOBIN 26.4 PG (27.0-34.0); MEAN CORPUSCULAR HGB CONC 31.3 % (32.0-36.0); PLATELET COUNT 264 TH/MM3 (150-450); RED BLOOD COUNT 4.72 MIL/MM3 (4.00-5.30); RED CELL DISTRIBUTION WIDTH 15.7 % (11.6-17.2); WHITE BLOOD COUNT 13.3 TH/MM3 (4.0-11.0)
[2016-07-14 15:54] LABS: HEMO FLAGS AUTO DIFF
[2016-07-14] MEDS ORDERED: ESZO3TAB4 PO (15:56)
[2016-07-14 16:04] LABS: APTT (PATIENT) 25.8 SEC (24.3-30.1); INTERNATIONAL NORMALIZED RATIO 1.6 RATIO; PROTHROMBIN TIME - PATIENT 18.1 SEC (9.8-11.6)
[2016-07-14 16:28] LABS: BANDS 2 % (0-6); NEUTROPHIL # MANUAL DIFF 9.4 TH/MM3 (1.8-7.7); POLYS (SEG NEUTROPHILS) 69 % (16-70); WBC DIFF SAMPLE 100
[2016-07-14 16:29] LABS: OVALOCYTES 1+ (NORMAL); PLATELET ESTIMATE SMEAR NORMAL (NORMAL); PLATELET MORPHOLOGY NORMAL (NORMAL); SCAN/DIFF FINAL DIFF MANUAL; TARGET CELLS 1+ (NORMAL)
[2016-07-14 16:45] LABS: ANION GAP 7 MEQ/L (5-15); BICARBONATE 26.1 MEQ/L (21.0-32.0); BLOOD UREA NITROGEN 35 MG/DL (7-18); CHLORIDE 109 MEQ/L (98-107); CREATINE KINASE 151 U/L (26-192); GLOMERULAR FILTRATION RATE 49 ML/MIN (>89); MAGNESIUM 2.6 MG/DL (1.5-2.5); SODIUM (NA) 142 MEQ/L (136-145)
[2016-07-14 16:58] LABS: POTASSIUM 5.3 MEQ/L (3.5-5.1)
[2016-07-14 17:11] LABS: CKMB 0.9 NG/ML (0.5-3.6)
[2016-07-14] MEDS: SODIUM CHLORIDE 0.9% FLUSH 10 ML FLUSH IVF PRN ×2 (18:34→19:23)
[2016-07-14] MEDS ORDERED: ONDANSETRON HCL 4 MG/2 ML VIAL IV PUSH ONE (19:30)
[2016-07-14] MEDS ORDERED: NITROGLYCERIN 2% OINT 1 GM PACKET TOP ONE (19:30)
[2016-07-14] MEDS ORDERED: ENOXAPARIN SODIUM 80 MG/0.8 ML SYRINGE SQ ONE (20:15)
[2016-07-14] MEDS ORDERED: SODIUM CHLORIDE 0.9% FLUSH 10 ML FLUSH IV FLUSH PRN (20:45)
[2016-07-14] MEDS ORDERED: traMADol HCL 50 MG TAB PO PRN (20:45)
[2016-07-14] MEDS ORDERED: DENOSUMAB 60 MG SQ SCH (20:45)
[2016-07-14] MEDS ORDERED: NALOXONE HCL 0.4 MG/ML AMP IV PRN (20:45)
[2016-07-14] MEDS ORDERED: MAGNESIUM 500 MG PO SCH (21:00)
[2016-07-14] MEDS: SODIUM CHLORIDE 0.9% FLUSH 10 ML FLUSH IV FLUSH SCH (21:07)
[2016-07-15] VITALS (8 sets, daily range): BP systolic 116–218; BP diastolic 56–91; PULSE 70–98; RESP 18–20; TEMP 97.7–98.8; O2SAT 95–99
[2016-07-15] MEDS ORDERED: cloNIDine HCL 0.1 MG TAB PO PRN (02:15)
[2016-07-15] MEDS: ACETAMINOPHEN 325 MG TAB PO PRN ×2 (02:45→13:07)
[2016-07-15] MEDS: traMADol HCL 50 MG TAB PO PRN ×4 (02:45→21:36)
[2016-07-15] MEDS: ONDANSETRON HCL 4 MG/2 ML VIAL IV PUSH PRN ×3 (02:45→16:11)
[2016-07-15] MEDS: LEVOTHYROXINE SODIUM 88 MCG TAB PO SCH (05:57)
--- NOTE | 2016-07-15 07:49 | HHI.HP ---
HPI Service [facility] Primary Care Physician Non-Staff Admission Diagnosis Chest pain Diagnoses: (VargasNo) Travel History International Travel<30 Days: No Contact w/Intl Traveler <30 Da: No Traveled to Known Affected Are: No (No KayeRoxana VERA) History of Present Illness This a pleasant 60-year-old female known to the undersigned previous admissions , significant past medical history of coronary artery disease with previous stent to the left main, antiphospholipid syndrome with history of DVT and PE, Hodgkin's lymphoma in 1976, hyperlipidemia. Patient presented to the emergency room for evaluation of chest pain. Patient indicates she was shopping at [employer] when she suddenly developed midsternal sharp pain, no radiation, she broke into sweat. She took 1 nitroglycerin and then decided to walk to the front of the store and told her to come in and pay for the groceries. She went and sat in the car where the pain continued and she took another nitroglycerin. She became concerned therefore she called [facility]. While waiting for Nathalie, she developed a headache, felt clammy and sweaty and slightly short of breath. She started seeing spots and felt like she was going to pass out. Indicates that this pain was different from her prior chest discomfort when she had myocardial infarction. Patient indicates that now the pain has subsided but is still present. She doesn't want to take any narcotics as it makes her really nauseous. She she has developed hives with morphine. Patient indicates that she follows up regularly with Dr. Bolanos. At the last visit she was noted with elevated blood pressure and he started her on amlodipine however she developed a headache and stopped taking. During this admission, her blood pressure has been elevated up to 200 over 90s. She has been admitted previously for atypical chest pain. She did have a stress test at this facility in 2014 that was normal. She was stressed as outpatient per Dr. Bolanos in December and it was normal. Patient endorses that she has noted some chest pain and also pain to her back between shoulder blades every time she rides her bike which improves with rest. States she follows up regularly with her oncologist Dr. Trujillo for history of Hodgkin's lymphoma. She recently had a liver biopsy in February 2016 which was negative. She does not recall when the last time she had a CT of the chest done. In the emergency room, patient was evaluated in troponin was noted minimally elevated, he has not trended upwards. The rest of her laboratory workup was essentially unremarkable except for mild elevation in creatinine. She is on Coumadin, INR was subtherapeutic at 1.6. She received Lovenox 70 mg 1 in the emergency room. Patient is examined in the presence of her , she is slightly anxious indicates that the pain still present. Patient is admitted for further evaluation and treatment. (No Kaye) Review of Systems Constitutional: COMPLAINS OF: Diaphoretic episodes, DENIES: Fatigue, Fever, Weight gain, Weight loss, Chills, Dizziness, Change in appetite, Night Sweats Endocrine: DENIES: Abnorml menstrual pattern, Heat/cold intolerance, Polydipsia , Polyuria, Polyphagia Eyes: DENIES: Blurred vision, Diplopia, Eye inflammation, Eye pain, Vision loss , Photosensitivity, Double Vision Ears, nose, mouth, throat: DENIES: Tinnitus, Hearing loss, Vertigo, Nasal discharge, Oral lesions, Throat pain, Hoarseness, Ear Pain, Running Nose, Epistaxis, Sinus Pain, Toothache, Odynophagia Respiratory: DENIES: Apneas, Cough, Snoring, Wheezing, Hemoptysis, Sputum production, Shortness of breath Cardiovascular: COMPLAINS OF: Chest pain, Dyspnea on Exertion, DENIES: Palpitations, Syncope, PND, Lower Extremity Edema, Orthopnea, Claudication Gastrointestinal: DENIES: Abdominal pain, Black stools, Bloody stools, Constipation, Diarrhea, Nausea, Vomiting, Difficulty Swallowing, Anorexia Genitourinary: DENIES: Abnormal vaginal bleeding, Dysmenorrhea, Dyspareunia, Sexual dysfunction, Urinary frequency, Urinary incontinence, Urgency, Hematuria , Dysuria, Nocturia, Vaginal discharge Musculoskeletal: DENIES: Joint pain, Muscle aches, Stiffness, Joint Swelling, Back pain, Neck pain Integumentary: DENIES: Abnormal pigmentation, Pruritus, Rash, Nail changes, Breast masses, Breast skin changes, Nipple discharge Hematologic/lymphatic: DENIES: Bruising, Lymphadenopathy Immunologic/allergic: DENIES: Eczema, Urticaria Neurologic: DENIES: Abnormal gait, Headache, Localized weakness, Paresthesias, Seizures, Speech Problems, Tremor, Poor Balance Psychiatric: COMPLAINS OF: Anxiety, DENIES: Confusion, Mood changes, Depression, Hallucinations, Agitation, Suicidal Ideation, Homicidal Ideation, Delusions (No Kaye) Past Family Social History Past Medical History 1. Non-STEMI myocardial infarction. Underwent cardiac catheterization at this facility, found with moderate left main coronary artery disease, 50%. 2. Status post stent to left main October 09, 2013 at [facility]. 3. Asthma. 4. Bilateral lower extremity deep venous thrombosis on Coumadin. Hx PE 5. Nephrolithiasis with history of stone removal. Indicates she still has one stone in the left ureter without any symptoms. 6. Gastroesophageal reflux disease. 7. Headache. 8. Hodgkin's lymphoma in the 1970s. Had radiation 9. Hyperlipidemia. 10. Hypertension. 11. Pancreatitis. 12. Hypothyroid. 13. Peptic ulcer disease. 14. Neuropathy. 15. Antiphospholipid antibody syndrome with subsequent deep venous thrombosis development. 16. B12 deficiency. 17. Sepsis admission associated with kidney stones, was in a coma. Past Surgical History 1. Sinus surgery. 2. Splenectomy. 3. Non-Hodgkin's lymphoma biopsy. 4. Nephrolithiasis, stone removal. 5. Hysterectomy. 6. Back surgery 2007. 7. Cholecystectomy. 8. Cath and stent 2013 at [facility] 9. Cath 2014, no restenosis, normal LV function 10. STT December 2015, normal 11. Liver bx Feb 2016, no malignancy. Reported Medications Reported Meds & Active Scripts Active Reported Lunesta (Eszopiclone) 3 Mg Tab 3 Mg PO HS PRN Magnesium 500 Mg Tab 500 Mg PO HS Prolia Inj (Denosumab) 60 Mg/Ml Inj 60 Mg SQ Q180D Nitrostat SL (Nitroglycerin) 0.4 Mg Subl 0.4 Mg SL DIRECTED PRN 1 tablet under the tongue as needed for chest pain. Repeat every 5 minutes for a total of 3 DOSES or call 911 if NO relief. Levothyroxine (Levothyroxine Sodium) 88 Mcg Tab 88 Mcg PO DAILY Tramadol (Tramadol HCl) 50 Mg Tab 50 Mg PO BID PRN Atenolol 50 Mg Tab 50 Mg PO DAILY @ 1800 Dexilant (Dexlansoprazole) 60 Mg Cap 60 Mg PO DAILY Coumadin (Warfarin) 1 Mg Tab 1 Mg PO MOWEFRSA @ 1600 Plavix (Clopidogrel Bisulfate) 75 Mg Tab 75 Mg PO DAILY (No Kaye) Allergies: Coded Allergies: Aspirin (Verified Allergy, Severe, ASTHMA, 06/04/16) Compazine (Verified Allergy, Severe, LOSS OF FACIAL MUSCLE CONTROL, 06/04/16 ) Contrast Media (Verified Allergy, Severe, Hives, 06/04/16) Cortisone (Verified Allergy, Severe, Hives, 06/04/16) Percocet (Verified Allergy, Severe, 06/04/16) PT STATES PANCREATITIS Levaquin (Verified Allergy, Mild, AGGRAVATES LIVER, 06/04/16) Morphine (Verified Allergy, Mild, Hives, 06/04/16) LOCALIZED AT INJECTION SITE. Bee Sting (Verified Allergy, Unknown, HIVES AND SWELLING, 06/04/16) Active Ordered Medications Inpatient Medications Acetaminophen (Tylenol) 650 mg Q6H PRN PO HEADACHE Last administered on 02:45; Start 07/15/16 at 02:15 Atenolol (Tenormin) 50 mg DAILY PO ; Start 07/15/16 at 09:00 Clonidine (Catapres) 0.1 mg Q6H PRN PO SEE LABEL COMMENTS Last administered on 07/15/16 02:44; Start 07/15/16 at 02:15 Clopidogrel Bisulfate (Plavix) 75 mg DAILY PO ; Start 07/15/16 at 09:00 Enoxaparin Sodium (Lovenox Inj) 70 mg ONCE ONCE SQ Last administered on 21:06; Start 07/14/16 at 20:15; Stop 07/14/16 at 20:16; Status DC Eszopiclone (Lunesta) 3 mg HS PRN PO INSOMNIA; Start 07/14/16 at 20:45 Hydromorphone HCl (Dilaudid Pf Inj) 1 mg ONCE ONCE IV PUSH Last administered on 07/14/16 19:23; Start 07/14/16 at 19:15; Stop 07/14/16 at 19:16; Status DC Levothyroxine Sodium (Synthroid) 88 mcg DAILY@06 PO Last administered on 05:57; Start 07/15/16 at 06:00 Naloxone HCl (Narcan Inj) 0.4 mg UNSCH PRN IV SEE LABEL COMMENTS; Start at 20:45 Nitroglycerin (Nitroglycerin 2% Oint) 1 inch ONCE ONCE TOP Last administered on 07/14/16 19:46; Start 07/14/16 at 19:30; Stop 07/14/16 at 19:31; Status DC Nitroglycerin (Nitrostat Sl) 0.4 mg ONCE ONCE SL Last administered on 15:40; Start 07/14/16 at 14:45; Stop 07/14/16 at 14:46; Status DC Ondansetron HCl (Zofran Inj) 4 mg Q4H PRN IV PUSH NAUSEA Last administered on 02:45; Start 07/15/16 at 02:15 Pantoprazole Sodium (Protonix) 40 mg DAILY PO ; Start 07/15/16 at 09:00 Patient Own Medication PT OWN MED: MAGNES... HS PO ; Start 07/14/16 at 21:00; Status Hold Sodium Chloride (NS Flush) 2 ml BID IV FLUSH Last administered on 07/14/16 21: 07; Start 07/14/16 at 21:00 Tramadol HCl (Ultram) 50 mg QID PRN PO PAIN 1-10 Last administered on 02:45; Start 07/15/16 at 02:15 Family History Positive for myocardial infarction in her mother. Father at the age of 94 from complications from diabetes; also had two strokes. She has a brother with pancreatic cancer who passes away. The rest of her brothers have hypertension, diabetes. She has a sister with diabetes as well. Social History The patient is , lives with her . She is disabled, unable to work because of chronic back pain. No alcohol, no substance abuse. No tobacco use. She has one daughter who is secondary to a suicide. (No Kaye) Physical Exam Vital Signs Vital Signs Date Time Temp Pulse Resp B/P Pulse Ox O2 Delivery O2 Flow Rate FiO2 07/15/16 03:32 97.7 98 20 209/90 98 218/91 07/15/16 00:10 84 07/14/16 23:15 97.8 82 18 193/89 98 07/14/16 22:52 86 16 199/90 97 Room Air 07/14/16 19:28 87 16 131/71 91 Nasal Cannula 4 07/14/16 19:07 86 16 196/84 100 Room Air 07/14/16 18:33 18 5/18/17 18:33 18 07/14/16 18:33 18 07/14/16 18:28 98 16 181/82 100 Room Air 07/14/16 16:30 86 18 162/78 100 07/14/16 15:57 91 18 185/85 Room Air 07/14/16 15:49 91 22 168/76 97 Room Air 07/14/16 14:43 98 Room Air 07/14/16 14:17 79 183/83 07/14/16 13:58 Room Air 07/14/16 13:57 22 07/14/16 13:54 Room Air 07/14/16 13:54 97.6 77 24 Room Air 07/14/16 13:46 97.8 78 22 Physical Exam GENERAL: This is a well-nourished, well-developed patient, in no apparent distress. SKIN: No rashes, ecchymoses or lesions. Cool and dry. HEAD: Atraumatic. Normocephalic. No temporal or scalp tenderness. EYES: Pupils equal round and reactive. Extraocular motions intact. No scleral icterus. No injection or drainage. ENT: Nose without bleeding, purulent drainage or septal hematoma. Throat without erythema, tonsillar hypertrophy or exudate. Uvula midline. Airway patent. NECK: Trachea midline. No JVD or lymphadenopathy. Supple, nontender, no meningeal signs. CARDIOVASCULAR: Regular rate and rhythm without murmurs, gallops, or rubs. RESPIRATORY: Clear to auscultation. Breath sounds equal bilaterally. No wheezes , rales, or rhonchi. GASTROINTESTINAL: Abdomen soft, non-tender, nondistended. No hepato-splenomegaly , or palpable masses. No guarding. MUSCULOSKELETAL: Extremities without clubbing, cyanosis, or edema. No joint tenderness, effusion, or edema noted. No calf tenderness. Negative Homans sign bilaterally. NEUROLOGICAL: Awake and alert. Cranial nerves II through XII intact. Motor and sensory grossly within normal limits. Five out of 5 muscle strength in all muscle groups. Normal speech. Laboratory Laboratory Tests Test 07/14/16 07/14/16 07/15/16 15:35 18:20 03:17 White Blood Count 13.3 Red Blood Count 4.72 Hemoglobin 12.5 Hematocrit 39.7 Mean Corpuscular Volume 84.2 Mean Corpuscular Hemoglobin 26.4 Mean Corpuscular Hemoglobin 31.3 Concent Red Cell Distribution Width 15.7 Platelet Count 264 Mean Platelet Volume 9.1 Neutrophils (%) (Auto) Lymphocytes (%) (Auto) Monocytes (%) (Auto) Eosinophils (%) (Auto) Basophils (%) (Auto) Neutrophils # (Auto) Lymphocytes # (Auto) Monocytes # (Auto) Eosinophils # (Auto) Basophils # (Auto) CBC Comment AUTO DIFF Differential Total Cells 100 Counted Neutrophils % (Manual) 69 Band Neutrophils % 2 Lymphocytes % 22 Monocytes % 7 Neutrophils # (Manual) 9.4 Differential Comment FINAL DIFF MANUAL Atypical Lymphocytes Platelet Estimate NORMAL Platelet Morphology Comment NORMAL Target Cells 1+ Ovalocytes 1+ Prothrombin Time 18.1 Prothromb Time International 1.6 Ratio Activated Partial 25.8 Thromboplast Time Sodium Level 142 Potassium Level 5.3 Chloride Level 109 Carbon Dioxide Level 26.1 Anion Gap 7 Blood Urea Nitrogen 35 Creatinine 1.13 Estimat Glomerular Filtration 49 Rate Random Glucose 78 Calcium Level 8.6 Magnesium Level 2.6 Total Creatine Kinase 151 Creatine Kinase MB 0.9 Troponin I 0.03 0.05 0.03 (No Kaye) Result Diagram: 07/14/16 1535 07/14/16 1535 Imaging Last Impressions Chest X-Ray 07/14/16 1341 Signed Impressions: Service Date/Time: June 13:38 - CONCLUSION: Normal examination. Persistent mild right thoracic scoliosis. Surgical clips scattered across the upper abdomen. Francisco Ontiveros MD (No Kaye) Assessment and Plan Problem List: (1) Chest pain (2) Hx of coronary artery disease (3) HTN (hypertension) (4) Hypothyroidism (5) Hyperlipidemia (6) GERD (gastroesophageal reflux disease) (7) hx dvt and pe (8) Hx of Hodgkins lymphoma (9) Near syncope Assessment and Plan Admit to Dr. Muro 60-year-old female with history of coronary artery disease, prior myocardial infarction with stent to the left main in 2013. Last stress test was normal normal. Frequent admissions for evaluation of chest pain. Also prior history of DVT and PE on Coumadin with subtherapeutic INR Chest pain, atypical with mild elevation in troponin, rule out acute coronary syndrome, possible urinary emboli with subtherapeutic INR. -Serial cardiac enzymes completed, mild elevation not trending upwards, EKG negative Cardiology has been consulted -Continue with telemetry monitoring Continue with Plavix 75 mg by mouth daily We'll start nitroglycerin 1 inch every [address] of the chest no contrast rule out mass, evaluate for possible lymphoma recurrence. We will order a VQ scan to rule out pulmonary emboli Blood pressure, uncontrolled Continue with atenolol 50 mg by mouth daily Continue nitroglycerin ointment 1 inch every 6 Continue with clonidine 0.1 mg PO every 6 when necessary Hyperlipidemia Continue with home medication History DVT and PE, history of antiphospholipid syndrome Subtherapeutic INR -Lovenox 70 mg subcutaneous daily, continue with Coumadin, follow INR daily. -Discontinue Lovenox when INR greater than 2 Home medications have been reviewed and initiated as indicated Continue with Lovenox and Coumadin for DVT prophylaxis Plan of care has been discussed with the patient and her , RN, and attending. Further management of the patient will be dependent on the hospital course This patient was seen by myself and Dr. Muro, this H&P is written on his behalf (No Kaye) Assessment and Plan pt seen and examined as above chart reviewed dw pt dw assurance associate about plan of care dw rn (Jennifer Muro MD) Problem Qualifiers (1) Chest pain: Qualified Code: R07.89 - Other chest pain (2) HTN (hypertension): Qualified Code: I10 - Essential hypertension (3) Hypothyroidism: Qualified Code: E03.9 - Hypothyroidism, unspecified type (4) Hyperlipidemia: Qualified Code: E78.5 - Hyperlipidemia, unspecified hyperlipidemia type (5) GERD (gastroesophageal reflux disease): Qualified Code: K21.9 - Gastroesophageal reflux disease without esophagitis No Kaye July 15, 2016 07:48 Jennifer Muro MD July 15, 2016 21:32
[2016-07-15] MEDS: PANTOPRAZOLE SOD 40 MG DELAYED RELEASE TAB PO SCH (09:41)
[2016-07-15] MEDS: CLOPIDOGREL 75 MG TAB PO SCH (09:41)
[2016-07-15] MEDS: SODIUM CHLORIDE 0.9% FLUSH 10 ML FLUSH IV FLUSH SCH ×2 (09:41→21:35)
[2016-07-15] MEDS: ATENOLOL 50 MG TAB PO SCH (09:42)
[2016-07-15] MEDS: NITROGLYCERIN 2% OINT 1 GM PACKET TOPICAL SCH ×3 (10:00→18:01)
--- NOTE | 2016-07-15 10:06 | RADRPT ---
EXAM DATE/TIME: 07/15/2016 09:28 [facility] COMPARISON: No previous studies available for comparison. INDICATIONS : Substernal chest pain with history of 2 heart attacks RADIATION DOSE: 4.15 CTDIvol (mGy) MEDICAL HISTORY : Diabetes mellitus type 1. Hypertension. Lymphoma. History of pulmonary embolis SURGICAL HISTORY : CABG ENCOUNTER: Initial ACUITY: 1 day PAIN SCALE: 4/10 LOCATION: chest TECHNIQUE: Volumetric scanning of the chest was performed. Using automated exposure control and adjustment of t he mA and/or kV according to patient size, radiation dose was kept as low as reasonably achievable to obtain optimal diagnostic quality images. FINDINGS: There is normal scarring in the left apex. No pulmonary nodules are identified. No pleural effusions are identified. Examination of the mediastinum demonstrates no abnormally enlarged lymph nodes by CT criteria. No axi llary or hilar abnormalities are identified. Coronary artery calcifications are present. The adrenal glands are unremarkable. CONCLUSION: 1. No evidence of acute thoracic abnormality. No masses are identified. Dean Peterson MD on July 15, 2016 at 9:43 Board Certified Radiologist. This report was verified electronically.
--- NOTE | 2016-07-15 12:08 | RADRPT ---
EXAM DATE/TIME: 07/15/2016 11:20 [facility] COMPARISON: CHEST SINGLE AP, July 14, 2016, 13:38. LUNG VENTILATION & PERFUSION SCAN, September 27, 2013, 19:03. INDICATIONS : Dyspnea. Chest pain with nausea, diaphoresis DOSE: 8.3 mCi Tc99m MAA IV 1.3 mCi Tc99m DTPA aerosol MEDICAL HISTORY : Myocardial infarction. Diabetes mellitus type 2. Gastroesophageal reflux disease. DVT. SURGICAL HISTORY : CABG Coronary artery stent. Hysterectomy. Appendectomy. Cholecystectomy. ENCOUNTER: Initial ACUITY: 1 day PAIN SCALE: 3/10 LOCATION: chest TECHNIQUE: Following five minutes of tidal breathing of DTPA aerosol, planar images of the lungs were performed in eight projections. The patient was then injected with MAA, and eight-view perfusion scan was perf ormed. FINDINGS: There is a homogeneous pattern of aerosol delivery to the periphery of both lungs. No focal ventilat ory defects are seen. The perfusion lung scan demonstrates a homogenous pattern of uptake in both lungs. No segmental or s ubsegmental defects are seen. CONCLUSION: 1. Low probability of pulmonary embolism Dean Peterson MD on July 15, 2016 at 12:07 Board Certified Radiologist. This report was verified electronically.
[2016-07-15 13:01] LABS: INTERNATIONAL NORMALIZED RATIO 1.7 RATIO; PROTHROMBIN TIME - PATIENT 19.5 SEC (9.8-11.6)
[2016-07-15 13:18] LABS: BICARBONATE 25.6 MEQ/L (21.0-32.0); POTASSIUM 4.4 MEQ/L (3.5-5.1)
--- NOTE | 2016-07-15 14:48 | EC ---
Study Study Date:07/15/2016 STUDY CONCLUSIONS SUMMARY - Left ventricle: The cavity size was normal. Wall thickness was normal. Systolic function was normal. The estimated ejection fraction was in the range of 55% to 60%. Wall motion was normal; there were no regional wall motion abnormalities. - Mitral valve: Mild regurgitation. If LV function is below 40, please consider prescribing an ACEI or ARB or document rationale for non-use. PROCEDURE DATA STUDY STATUS: Elective. Procedure: Transthoracic echocardiography. Image quality was good. Scanning was performed from the parasternal, apical, and subcostal acoustic windows. Study completion: The patient tolerated the procedure well. Transthoracic echocardiography. M-mode, complete 2D, complete spectral Doppler, and color Doppler. Height: Height: 64in. Weight: Weight: 148.7lb. Body mass index: BMI: 25.6kg/m^2. Body surface area: BSA: 1.73m^2. Patient status: Inpatient. CARDIAC ANATOMY LEFT VENTRICLE: The cavity size was normal. Wall thickness was normal. Systolic function was normal. The estimated ejection fraction was in the range of 55% to 60%. Wall motion was normal; there were no regional wall motion abnormalities. AORTIC VALVE: Trileaflet; normal thickness leaflets. Doppler: Transvalvular velocity was within the normal range. There was no stenosis. No regurgitation. AORTA: Aortic root: The aortic root was normal in size. MITRAL VALVE: Structurally normal valve. Doppler: Transvalvular velocity was within the normal range. There was no evidence for stenosis. Mild regurgitation. LEFT ATRIUM: The atrium was normal in size. RIGHT VENTRICLE: The cavity size was normal. Wall thickness was normal. PULMONIC VALVE: Doppler: Transvalvular velocity was within the normal range. There was no evidence for stenosis. No regurgitation. TRICUSPID VALVE: Structurally normal valve. Doppler: Transvalvular velocity was within the normal range. No regurgitation. PULMONARY ARTERY: The main pulmonary artery was normal-sized. Systolic pressure was within the normal range. RIGHT ATRIUM: The atrium was normal in size. PERICARDIUM: There was no pericardial effusion. SYSTEMIC VEINS: Inferior vena cava: The vessel was normal in size. Patient weight: 148.7lb _Ejection fraction:_ 65-75% _Fractional shortening:_ 32% up to 5Kg 5-11.5Kg 11.6-22.9Kg 23-45Kg 45-57Kg Aortic Root 7-13 <17 13-22 17-27 17-27 LA diam 6-13 <23 24-38 33-47 37-40 RVID 10-17 7-15 7-15 7-18 8-17 LVIDd 12-22 <32 24-38 33-47 37-40 LVPW 2-4 3-6 5-7 6-8 7-8 IVS 2-4 3-6 5-7 6-8 7-8 BASIC MEASUREMENTS ADULT Normal Left ventricle LV internal dimension, ED, chordal level, *39.6 mm 43-52 PLAX LV internal dimension, ES, chordal level, 28.4 mm 23-38 PLAX Fractional shortening, chordal level, PLAX *28 % >29 LV posterior wall thickness, ED 10.3 mm IVS/LVPW ratio, ED *1.46 <1.3 Ventricular septum Septal thickness, ED 15 mm Aortic valve Leaflet separation 17 mm 15-26 Right ventricle RV internal dimension, ED, PLAX 21.2 mm 19-38 BASIC MEASUREMENTS ADULT Normal Aortic valve Leaflet separation 17 mm 15-26 Aorta Root diameter, ED 28 mm 20-37 Left atrium Anterior-posterior dimension, ES 34 mm 19-40 Anterior-posterior dimension index, ES 1.97 cm/m^2 <2.2 LA/aortic root ratio 1.21 DOPPLER MEASUREMENTS ADULT Normal Main pulmonary artery Pressure, S 24 mm Hg =30 Mitral valve Peak E-wave velocity 48.4 cm/s Peak A-wave velocity 79.5 cm/s Peak E/A ratio 0.6 Tricuspid valve Regurgitant peak velocity 190 cm/s Peak RV-RA gradient, S 14 mm Hg Maximal regurgitant velocity 190 cm/s Systemic veins Estimated CVP 10 mm Hg Right ventricle RV pressure, S 24 mm Hg <30 LEGEND: Mean values are shown as u=mean value. Asterisk (*) calix values outside specified normal range. Prepared and signed by Reyes Antoine [id number]
--- NOTE | 2016-07-15 18:02 | MB ---
cc: TERRA GAVIN DATE OF CONSULTATION: 07/15/2016. HISTORY OF PRESENT ILLNESS: Ms. Barnett is a 50-year-old white female with a history of left main coronary stenting, PE and dyslipidemia. She was shopping at [employer] when she suddenly developed sharp substernal chest discomfort without radiation. She was diaphoretic and took one nitroglycerin. She got dizzy, lightheaded and pre-syncopal. She was brought to the hospital by paramedics. She has been ruled out for a myocardial infarction by enzymes. Her CT angiogram was unremarkable. Her cardiac enzymes are unremarkable. She is still having episodes of severe substernal chest discomfort. PAST MEDICAL HISTORY: Her past medical history is positive for: 1. Non-S-T elevation myocardial infarction. Cardiac catheterization showed 50% of the left main coronary artery in 2014. She subsequently has had left main stenting at [facility] in September of 2013. Last cardiac catheterization by Dr. Bolanos in 2014 showed no evidence of stenosis. She also had negative nuclear myocardial perfusion study last year with Dr. Bolanos. 2. Asthma. 3. Bilateral DVT. 5. Headaches. 6. Hodgkin's lymphoma in 1970s. 7. Dyslipidemia. 8. Hypertension. 9. Pancreatitis. 10. Hypothyroidism. 11. Peptic ulcer disease. 12. Neuropathy. 13. Antiphospholipid antibody syndrome. 14. B-12 deficiency. 16. Splenectomy. 17. Hyperlipidemia biopsy. 18. Nephrolithiasis stone removal. 19. Hysterectomy. 20. Back surgery. 21. Cholecystectomy. 22. Liver biopsy. MEDICATIONS: 1. Magnesium. 2. Prolia. 3. Nitroglycerin. 4. Levothyroxine. 5. Tramadol. 7. Dexilant. 8. Coumadin. 9. Plavix. ALLERGIES: 1. ASPIRIN. 2. COMPAZINE. 3. CONTRAST. 4. CORTISONE. 5. PERCOCET. 6. LEVAQUIN. 7. MORPHINE. 8. BEE STINGS. SOCIAL HISTORY: The patient does not smoke. She does not drink alcohol. She is . She is disabled due to chronic back pain. FAMILY HISTORY: Positive for heart disease. REVIEW OF SYSTEMS: The review of systems is otherwise negative. PHYSICAL EXAMINATION: VITAL SIGNS: Blood pressure is 120/60, pulse 72 and regular. HEAD, EYES, EARS, NOSE, THROAT: Negative. NECK: 2+ carotid upstrokes, no bruits. LUNGS: Clear. HEART: Regular with no murmurs, rubs or gallops. ABDOMEN: Abdomen soft. No bruits. EXTREMITIES: Without edema. 2+ distal pulses. NEUROLOGIC: Grossly nonfocal. EKGS: EKG was reviewed and showed normal sinus rhythm with normal axis, left ventricular hypertrophy. LABS: Hemoglobin 12.5. Potassium 4.4, creatinine 0.9. Troponin 0.03, 0.05, 0.03 and 0.04. DIAGNOSIS: 1. Unstable angina. 2. Coronary artery disease with history of left main coronary stenting. 3. History of DVT. 4. Gastroesophageal reflux disease (GERD). 5. Dyslipidemia. 6. Hypertension. 7. Antiphospholipid antibody syndrome. DISPOSITION: Ms. Barnett has had continuing chest discomfort. Her evaluation so far has been unremarkable. Her chest CT showed no significant abnormalities. Her VQ scan showed no evidence of pulmonary embolism. Her echocardiogram showed preserved left ventricular systolic function with an ejection fraction of 55% to 60% and no wall motion abnormalities. I recommend to continue current medical program. I recommend to continue full-dose Lovenox and Plavix. The patient has had repeated admissions for chest discomfort. She has a stent in the left main coronary artery. I recommend to repeat her cardiac catheterization with Dr. Bolanos next week. She will need to be pre-medicated due to contrast allergy. She will stay in the hospital on telemetry over the weekend. Dr. Bolanos will take over her cardiology care on Monday. MD POOL Duenas/KENDRICK /4:12 PM /5:44 PM NAVEEN
--- NOTE | 2016-07-15 21:32 | EKG ---
Date Performed: 07/14/2016 Time Performed: 19:14:29 PTAGE: 60 years EKG: Sinus rhythm VOLTAGE CRITERIA FOR LVH ABNORMAL ECG PREVIOUS TRACING : 07/14/2016 13.47 Compared to prior tracing no significant change DOCTOR: Hernando Arora Interpretating Date/Time 07/15/2016 21:30:39
[2016-07-15] MEDS: ESZOPICLONE 3 MG TAB PO PRN (21:35)
[2016-07-15] MEDS: ENOXAPARIN SODIUM 80 MG/0.8 ML SYRINGE SQ SCH (21:35)
--- NOTE | 2016-07-15 21:48 | EKG ---
Date Performed: 07/14/2016 Time Performed: 13:47:09 PTAGE: 60 years EKG: Sinus rhythm VOLTAGE CRITERIA FOR LVH MINIMAL ST DEPRESSION ABNORMAL ECG PREVIOUS TRACING : 06/04/2016 14.56 Compared to prior tracing no significant change DOCTOR: Hernando Arora Interpretating Date/Time 07/15/2016 21:48:12
[2016-07-16] VITALS (10 sets, daily range): BP systolic 129–156; BP diastolic 60–79; PULSE 68–86; RESP 16–18; TEMP 97.5–98.8; O2SAT 94–99
[2016-07-16] MEDS: NITROGLYCERIN 2% OINT 1 GM PACKET TOPICAL SCH ×4 (00:02→17:42)
[2016-07-16] MEDS: LEVOTHYROXINE SODIUM 88 MCG TAB PO SCH (05:50)
[2016-07-16 06:07] LABS: HEMATOCRIT 42.3 % (35.0-46.0); INTERNATIONAL NORMALIZED RATIO 1.9 RATIO; MEAN CELL VOLUME 86.1 FL (80.0-100.0); MEAN CORPUSCULAR HEMOGLOBIN 26.9 PG (27.0-34.0); MEAN CORPUSCULAR HGB CONC 31.3 % (32.0-36.0); PLATELET COUNT 246 TH/MM3 (150-450); PROTHROMBIN TIME - PATIENT 21.8 SEC (9.8-11.6); RED BLOOD COUNT 4.91 MIL/MM3 (4.00-5.30); RED CELL DISTRIBUTION WIDTH 16.4 % (11.6-17.2); REVIEW FLAG FINAL; WHITE BLOOD COUNT 8.1 TH/MM3 (4.0-11.0)
[2016-07-16 06:35] LABS: BICARBONATE 23.3 MEQ/L (21.0-32.0)
[2016-07-16 06:41] LABS: POTASSIUM 4.9 MEQ/L (3.5-5.1)
[2016-07-16] MEDS: CLOPIDOGREL 75 MG TAB PO SCH (08:53)
[2016-07-16] MEDS: SODIUM CHLORIDE 0.9% FLUSH 10 ML FLUSH IV FLUSH SCH ×2 (08:53→20:08)
[2016-07-16] MEDS: ATENOLOL 50 MG TAB PO SCH (08:53)
[2016-07-16] MEDS: PANTOPRAZOLE SOD 40 MG DELAYED RELEASE TAB PO SCH (08:53)
--- NOTE | 2016-07-16 08:56 | HHI.PR ---
Subjective Remarks chest pain relieved after ntg paste, slept better no sob no fever bp coming down agreeable with further cardiac work up and staying over weekend Objective Objective Results - Vital Signs Date Time Temp Pulse Resp B/P Pulse Ox O2 Delivery O2 Flow Rate FiO2 07/16/16 07:57 97.5 80 16 156/74 94 07/16/16 04:02 98.8 82 18 129/60 95 07/15/16 23:44 98.8 85 18 116/56 96 07/15/16 22:55 73 07/15/16 20:04 97.9 79 18 123/86 99 07/15/16 16:24 70 07/15/16 15:17 97.9 72 20 120/60 96 07/15/16 13:07 97.9 77 18 158/72 98 Result Diagram: 07/16/1651607/16/16516 Imaging Last Impressions Chest X-Ray 07/14/16 1341 Signed Impressions: Service Date/Time: June 13:38 - CONCLUSION: Normal examination. Persistent mild right thoracic scoliosis. Surgical clips scattered across the upper abdomen. Francisco Ontiveros MD Other Results Laboratory Tests Test 07/15/16 07/16/16 12:32 05:17 Erythrocyte Sedimentation Rate 8 Prothrombin Time 19.5 21.8 Prothromb Time International 1.7 1.9 Ratio Sodium Level 140 141 Potassium Level 4.4 4.9 Chloride Level 108 108 Carbon Dioxide Level 25.6 23.3 Anion Gap 6 10 Blood Urea Nitrogen 25 22 Creatinine 0.93 1.05 Estimat Glomerular Filtration 61 53 Rate Random Glucose 123 112 Calcium Level 8.1 8.4 Troponin I 0.04 White Blood Count 8.1 Red Blood Count 4.91 Hemoglobin 13.2 Hematocrit 42.3 Mean Corpuscular Volume 86.1 Mean Corpuscular Hemoglobin 26.9 Mean Corpuscular Hemoglobin 31.3 Concent Red Cell Distribution Width 16.4 Platelet Count 246 Mean Platelet Volume 8.9 ROS General: No: Fatigue, Weakness HEENT: No: Sore Throat, Dysphagia Cardiac: Chest Pain, No: Edema, Palpitations, Other Pulmonary: No: Cough, SOB, Wheezing GI: No: Abdominal Pain, BM, Diarrhea, N/V /ACADEMY DIRECTOR: No: Dysuria, Urgency Neuro/MS: No: Lightheaded, Confusion Psych: No: Anxiety, Depression Skin: No: Itching, Rash Physical Exam Physical Exam GENERAL: This is a well-nourished, well-developed patient, in no apparent distress. SKIN: No rashes, ecchymoses or lesions. Cool and dry. HEAD: Atraumatic. Normocephalic. No temporal or scalp tenderness. EYES: Pupils equal round and reactive. Extraocular motions intact. No scleral icterus. No injection or drainage. ENT: Nose without bleeding, purulent drainage or septal hematoma. Throat without erythema, tonsillar hypertrophy or exudate. Uvula midline. Airway patent. NECK: Trachea midline. No JVD or lymphadenopathy. Supple, nontender, no meningeal signs. CARDIOVASCULAR: Regular rate and rhythm without murmurs, gallops, or rubs. RESPIRATORY: Clear to auscultation. Breath sounds equal bilaterally. No wheezes , rales, or rhonchi. GASTROINTESTINAL: Abdomen soft, non-tender, nondistended. No hepato-splenomegaly , or palpable masses. No guarding. MUSCULOSKELETAL: Extremities without clubbing, cyanosis, or edema. No joint tenderness, effusion, or edema noted. No calf tenderness. Negative Homans sign bilaterally. NEUROLOGICAL: Awake and alert. Cranial nerves II through XII intact. Motor and sensory grossly within normal limits. Five out of 5 muscle strength in all muscle groups. Normal speech. Urinary Catheter: No Vascular Central Line Catheter: No A/P Diagnosis: (1) Chest pain (2) Hx of coronary artery disease (3) HTN (hypertension) (4) Hypothyroidism (5) Hyperlipidemia (6) GERD (gastroesophageal reflux disease) (7) hx dvt and pe (8) Hx of Hodgkins lymphoma (9) Near syncope Assessment and Plan 60-year-old female with history of coronary artery disease, prior myocardial infarction with stent to the left main in 2013. Last stress test was normal normal. Frequent admissions for evaluation of chest pain. Also prior history of DVT and PE on Coumadin with subtherapeutic INR Chest pain, with mild elevation in troponin, [place]. Cardiology input appreciated, Dr. Jacobs evaluated, likely unstable angina. Recommends cardiac cath per Dr. Bolanos. Pt. needs to stay until Dr. Bolanos returns on Monday. Continue with medical management, including Lovenox. -Continue with telemetry monitoring Continue with Plavix 75 mg by mouth daily nitroglycerin 1 inch every 6 -CT chest done, no masses. VQ scan no PE Blood pressure, initially elevated, trending down. Better now Continue with atenolol 50 mg by mouth daily Continue nitroglycerin ointment 1 inch every 6 Continue with clonidine 0.1 mg PO every 6 when necessary Hyperlipidemia Continue with home medication History DVT and PE, history of antiphospholipid syndrome Subtherapeutic INR -Coumadin stopped yesterday, continue Lovenox 70 mg SQ daily -Follow INR, today 1.9 Continue with Lovenox for DVT prophylaxis Needs to be premedicated before cath Continue with present treatment, CP relieved with Ntg paste. Change to inpatient, transfer to cardiac floor. D/W RN D/W Dr. Muro D/W pt. This patient was seen by myself and Dr. Muro, this note is written on his behalf Problem Qualifiers (1) Chest pain: Qualified Code: R07.89 - Other chest pain (2) HTN (hypertension): Qualified Code: I10 - Essential hypertension (3) Hypothyroidism: Qualified Code: E03.9 - Hypothyroidism, unspecified type (4) Hyperlipidemia: Qualified Code: E78.5 - Hyperlipidemia, unspecified hyperlipidemia type (5) GERD (gastroesophageal reflux disease): Qualified Code: K21.9 - Gastroesophageal reflux disease without esophagitis No Kaye July 16, 2016 08:55
[2016-07-16] MEDS ORDERED: NITROGLYCERIN-DEXTROSE INJ 250 ML IV SCH (10:15)
[2016-07-16] MEDS: SODIUM CHLOR 0.9% 1000 ML INJ 1,000 ML IV SCH (13:00)
--- NOTE | 2016-07-16 16:12 | EKG ---
Date Performed: 07/16/2016 Time Performed: 10:12:08 PTAGE: 60 years EKG: Sinus rhythm VOLTAGE CRITERIA FOR LVH ABNORMAL ECG PREVIOUS TRACING : 07/14/2016 19.14 Compared to prior tracing no significant change DOCTOR: Calli Mccracken Interpretating Date/Time 07/16/2016 16:09:59
[2016-07-16] MEDS: traMADol HCL 50 MG TAB PO PRN (17:42)
[2016-07-16] MEDS ORDERED: MAGNESIUM HYDROXIDE SUSP 30 ML CUP PO ONE (18:45)
[2016-07-16] MEDS: ENOXAPARIN SODIUM 80 MG/0.8 ML SYRINGE SQ SCH (20:08)
[2016-07-16] MEDS: ESZOPICLONE 3 MG TAB PO PRN (21:52)
[2016-07-16] MEDS: ACETAMINOPHEN 325 MG TAB PO PRN (21:53)
[2016-07-17] VITALS (26 sets, daily range): BP systolic 147–165; BP diastolic 71–85; PULSE 64–100; RESP 14–20; TEMP 97.8–98.1; O2SAT 96–99
[2016-07-17] MEDS: SODIUM CHLOR 0.9% 1000 ML INJ 1,000 ML IV SCH (01:07)
[2016-07-17] MEDS: NITROGLYCERIN 2% OINT 1 GM PACKET TOPICAL SCH ×4 (01:07→18:18)
[2016-07-17] MEDS: traMADol HCL 50 MG TAB PO PRN ×3 (01:13→20:52)
[2016-07-17] MEDS: ACETAMINOPHEN 325 MG TAB PO PRN (04:46)
[2016-07-17] MEDS: LEVOTHYROXINE SODIUM 88 MCG TAB PO SCH (05:23)
[2016-07-17] MEDS: PANTOPRAZOLE SOD 40 MG DELAYED RELEASE TAB PO SCH (08:14)
[2016-07-17] MEDS: ATENOLOL 50 MG TAB PO SCH (08:14)
[2016-07-17] MEDS: SODIUM CHLORIDE 0.9% FLUSH 10 ML FLUSH IV FLUSH SCH ×2 (08:15→20:52)
[2016-07-17] MEDS: CLOPIDOGREL 75 MG TAB PO SCH (08:15)
[2016-07-17 08:23] LABS: INTERNATIONAL NORMALIZED RATIO 1.7 RATIO; PROTHROMBIN TIME - PATIENT 19.6 SEC (9.8-11.6)
--- NOTE | 2016-07-17 10:47 | HHI.PR ---
Subjective Remarks occaisnal chest dyscomfort for just a moment no sob no fever bp coming down agreeable with further cardiac work up and staying over weekend Objective Objective Results - Vital Signs Date Time Temp Pulse Resp B/P Pulse Ox O2 Delivery O2 Flow Rate FiO2 07/17/16 07:00 72 07/17/16 06:00 84 07/17/16 05:00 90 07/17/16 04:38 98.0 84 16 157/85 97 07/17/16 04:00 82 07/17/16 03:00 88 07/17/16 02:00 84 07/17/16 01:00 82 07/17/16 00:00 98.0 89 14 158/77 97 07/17/16 00:00 86 07/16/16 23:00 86 07/16/16 22:00 76 07/16/16 21:00 80 07/16/16 20:00 68 07/16/16 20:00 70 16 155/79 99 07/16/16 19:07 18 07/16/16 19:00 68 07/16/16 15:44 98.1 74 18 147/74 95 07/16/16 12:15 98.2 73 18 150/74 98 I/O 07/16/16 07/16/16 07/16/16 07/17/16 07/17/16 07/17/16 07:00 15:00 23:00 07:00 15:00 23:00 Intake Total 1000 ml 1370 ml Balance 1000 ml 1370 ml Intake Oral 640 ml 480 ml IV Total 360 ml 890 ml # Voids 3 2 # Bowel Movements 0 0 Result Diagram: 07/16/1651607/16/16516 Imaging Last Impressions Chest X-Ray 07/14/16 1341 Signed Impressions: Service Date/Time: June 13:38 - CONCLUSION: Normal examination. Persistent mild right thoracic scoliosis. Surgical clips scattered across the upper abdomen. Francisco Ontiveros MD Other Results Laboratory Tests Test 07/16/16 07/17/16 11:50 06:52 Troponin I 0.04 Prothrombin Time 19.6 Prothromb Time International 1.7 Ratio Physical Exam Physical Exam GENERAL: This is a well-nourished, well-developed patient, in no apparent distress. SKIN: No rashes, ecchymoses or lesions. Cool and dry. HEAD: Atraumatic. Normocephalic. No temporal or scalp tenderness. EYES: Pupils equal round and reactive. Extraocular motions intact. No scleral icterus. No injection or drainage. ENT: Nose without bleeding, purulent drainage or septal hematoma. Throat without erythema, tonsillar hypertrophy or exudate. Uvula midline. Airway patent. NECK: Trachea midline. No JVD or lymphadenopathy. Supple, nontender, no meningeal signs. CARDIOVASCULAR: Regular rate and rhythm without murmurs, gallops, or rubs. RESPIRATORY: Clear to auscultation. Breath sounds equal bilaterally. No wheezes , rales, or rhonchi. GASTROINTESTINAL: Abdomen soft, non-tender, nondistended. No hepato-splenomegaly , or palpable masses. No guarding. MUSCULOSKELETAL: Extremities without clubbing, cyanosis, or edema. No joint tenderness, effusion, or edema noted. No calf tenderness. Negative Homans sign bilaterally. NEUROLOGICAL: Awake and alert. Cranial nerves II through XII intact. Motor and sensory grossly within normal limits. Five out of 5 muscle strength in all muscle groups. Normal speech. Urinary Catheter: No Vascular Central Line Catheter: No A/P Assessment and Plan (1) Chest pain (2) Hx of coronary artery disease (3) HTN (hypertension) (4) Hypothyroidism (5) Hyperlipidemia (6) GERD (gastroesophageal reflux disease) (7) hx dvt and pe (8) Hx of Hodgkins lymphoma (9) Near syncope Plan 60-year-old female with history of coronary artery disease, prior myocardial infarction with stent to the left main in 2013. Last stress test was normal normal. Frequent admissions for evaluation of chest pain. Also prior history of DVT and PE on Coumadin with subtherapeutic INR Chest pain, with mild elevation in troponin, [place]. Cardiology input appreciated, Dr. Jacobs evaluated, likely unstable angina. Recommends cardiac cath per Dr. Bolanos. Pt. needs to stay until Dr. Bolanos returns on Monday of unstable angina . Continue with medical management, including Lovenox. As per rn c cath tomorrow will hold lovenox after tonight dose as dw rn -Continue with telemetry monitoring Continue with Plavix 75 mg by mouth daily nitroglycerin 1 inch every 6 -CT chest done, no masses. VQ scan no PE Blood pressure, initially elevated, trending down. Better now Continue with atenolol daily Continue nitroglycerin ointment 1 inch every 6 Continue with clonidine 0.1 mg PO every 6 when necessary Hyperlipidemia Continue with home medication History DVT and PE, history of antiphospholipid syndrome Subtherapeutic INR -Coumadin stopped yesterday, continue Lovenox -Follow INR, today 1.7 Continue with Lovenox for DVT prophylaxis Needs to be premedicated before cath Continue with present treatment, CP relieved with Ntg paste. Change to inpatient, transfer to cardiac floor. D/W RN D/W pt and at bedside Jennifer Muro MD July 17, 2016 10:47
[2016-07-17] MEDS: ENOXAPARIN SODIUM 80 MG/0.8 ML SYRINGE SQ SCH (20:51)
[2016-07-17] MEDS: ESZOPICLONE 3 MG TAB PO PRN (22:14)
[2016-07-18] VITALS (24 sets, daily range): BP systolic 120–193; BP diastolic 54–86; PULSE 66–93; RESP 14–20; TEMP 97.9–98.7; O2SAT 96–100
[2016-07-18] MEDS: ACETAMINOPHEN 325 MG TAB PO PRN (01:48)
[2016-07-18] MEDS: NITROGLYCERIN 2% OINT 1 GM PACKET TOPICAL SCH ×5 (01:48→22:49)
[2016-07-18] MEDS: traMADol HCL 50 MG TAB PO PRN (04:08)
[2016-07-18 04:59] LABS: HEMATOCRIT 41.7 % (35.0-46.0); MEAN CELL VOLUME 85.7 FL (80.0-100.0); MEAN CORPUSCULAR HEMOGLOBIN 26.7 PG (27.0-34.0); MEAN CORPUSCULAR HGB CONC 31.2 % (32.0-36.0); PLATELET COUNT 288 TH/MM3 (150-450); RED BLOOD COUNT 4.87 MIL/MM3 (4.00-5.30); RED CELL DISTRIBUTION WIDTH 16.5 % (11.6-17.2); REVIEW FLAG FINAL; WHITE BLOOD COUNT 10.9 TH/MM3 (4.0-11.0)
[2016-07-18 05:08] LABS: INTERNATIONAL NORMALIZED RATIO 1.5 RATIO; PROTHROMBIN TIME - PATIENT 17.4 SEC (9.8-11.6)
[2016-07-18 05:38] LABS: ANION GAP 8 MEQ/L (5-15); AST (GOT) 24 U/L (15-37); BICARBONATE 24.5 MEQ/L (21.0-32.0); BLOOD UREA NITROGEN 20 MG/DL (7-18); CHLORIDE 109 MEQ/L (98-107); GLOMERULAR FILTRATION RATE 62 ML/MIN (>89); POTASSIUM 4.6 MEQ/L (3.5-5.1); SODIUM (NA) 141 MEQ/L (136-145)
[2016-07-18 05:47] LABS: ALKALINE PHOSPHATASE 51 U/L (45-117); ALT (GPT) 56 U/L (10-53); FREE T4 1.09 NG/DL (0.76-1.46); HDL CHOLESTEROL 61.4 MG/DL (40.0-60.0); LDL CHOLESTEROL 147 MG/DL (0-99); TOTAL BILIRUBIN ADULT 0.5 MG/DL (0.2-1.0)
[2016-07-18] MEDS: LEVOTHYROXINE SODIUM 88 MCG TAB PO SCH (06:16)
[2016-07-18] MEDS ORDERED: IOHEXOL 350 MG/ML 100 ML BTL (for Cath Lab) OTHER ONE (08:03)
[2016-07-18] MEDS: SODIUM CHLORIDE 0.9% FLUSH 10 ML FLUSH IV FLUSH SCH ×2 (09:45→21:00)
[2016-07-18] MEDS: ATENOLOL 50 MG TAB PO SCH (09:46)
[2016-07-18] MEDS: CLOPIDOGREL 75 MG TAB PO SCH (09:46)
[2016-07-18] MEDS: PANTOPRAZOLE SOD 40 MG DELAYED RELEASE TAB PO SCH (09:46)
[2016-07-18] MEDS: ENOXAPARIN SODIUM 80 MG/0.8 ML SYRINGE SQ SCH (09:47)
[2016-07-18] MEDS: ATORVASTATIN 20 MG TAB PO SCH (09:47)
--- NOTE | 2016-07-18 10:25 | HHI.PR ---
Subjective Interval History awake alert and oriented Anxious about cardiac cath today NPO no chest pain at this point BP high no family at bed side Vitals/Results Intake & Output 07/17/16 07/17/16 07/18/16 15:00 23:00 07:00 Intake Total 1120 ml 480 ml Balance 1120 ml 480 ml Intake Oral 720 ml 480 ml IV Total 400 ml 0 ml # Voids 5 4 # Bowel Movements 1 0 Vital Signs Vital Signs Date Time Temp Pulse Resp B/P Pulse Ox O2 Delivery O2 Flow Rate FiO2 07/18/16 06:00 76 07/18/16 05:00 72 07/18/16 04:00 75 07/18/16 04:00 98.1 78 14 167/83 99 07/18/16 03:00 95 Room Air 07/18/16 03:00 76 07/18/16 02:00 74 07/18/16 01:00 84 07/18/16 00:00 98.3 87 14 120/68 97 07/18/16 00:00 72 07/17/16 23:00 100 07/17/16 23:00 97 Room Air 07/17/16 22:00 76 07/17/16 21:00 78 07/17/16 20:00 98.0 76 18 161/82 97 07/17/16 20:00 72 07/17/16 20:00 95 Room Air 07/17/16 19:00 86 07/17/16 18:18 154/81 07/17/16 18:00 78 07/17/16 17:00 66 07/17/16 16:00 96 Room Air 07/17/16 16:00 97.9 74 20 165/82 96 07/17/16 16:00 64 07/17/16 15:00 67 07/17/16 14:00 80 07/17/16 13:50 18 07/17/16 13:00 82 07/17/16 12:00 72 07/17/16 12:00 97 Room Air 07/17/16 12:00 98.1 74 20 147/71 97 07/17/16 11:00 70 CBC/BMP: 07/18/16 0404 07/18/16 0404 Lab Results Laboratory Tests Test 07/18/16 04:04 White Blood Count 10.9 TH/MM3 Red Blood Count 4.87 MIL/MM3 Hemoglobin 13.0 GM/DL Hematocrit 41.7 % Mean Corpuscular Volume 85.7 FL Mean Corpuscular Hemoglobin 26.7 PG Mean Corpuscular Hemoglobin 31.2 % Concent Red Cell Distribution Width 16.5 % Platelet Count 288 TH/MM3 Mean Platelet Volume 9.1 FL Prothrombin Time 17.4 SEC Prothromb Time International 1.5 RATIO Ratio Sodium Level 141 MEQ/L Potassium Level 4.6 MEQ/L Chloride Level 109 MEQ/L Carbon Dioxide Level 24.5 MEQ/L Anion Gap 8 MEQ/L Blood Urea Nitrogen 20 MG/DL Creatinine 0.92 MG/DL Estimat Glomerular Filtration 62 ML/MIN Rate Random Glucose 105 MG/DL Calcium Level 8.9 MG/DL Total Bilirubin 0.5 MG/DL Aspartate Amino Transf 24 U/L (AST/SGOT) Alanine Aminotransferase 56 U/L (ALT/SGPT) Alkaline Phosphatase 51 U/L Total Protein 6.2 GM/DL Albumin 3.2 GM/DL Triglycerides Level 149 MG/DL Cholesterol Level 238 MG/DL LDL Cholesterol 147 MG/DL HDL Cholesterol 61.4 MG/DL Cholesterol/HDL Ratio 3.87 RATIO Free Thyroxine 1.09 NG/DL Thyroid Stimulating Hormone 3.550 uIU/ML 3rd Gen Assessment/Plan Assessment/Plan Physical Exam Physical Exam GENERAL: This is a well-nourished, well-developed patient, in no apparent distress. SKIN: No rashes, ecchymoses or lesions. Cool and dry. HEAD: Atraumatic. Normocephalic. No temporal or scalp tenderness. EYES: Pupils equal round and reactive. Extraocular motions intact. No scleral icterus. No injection or drainage. ENT: Nose without bleeding, purulent drainage or septal hematoma. Throat without erythema, tonsillar hypertrophy or exudate. Uvula midline. Airway patent. NECK: Trachea midline. No JVD or lymphadenopathy. Supple, nontender, no meningeal signs. CARDIOVASCULAR: Regular rate and rhythm without murmurs, gallops, or rubs. RESPIRATORY: Clear to auscultation. Breath sounds equal bilaterally. No wheezes , rales, or rhonchi. GASTROINTESTINAL: Abdomen soft, non-tender, nondistended. No hepato-splenomegaly , or palpable masses. No guarding. MUSCULOSKELETAL: Extremities without clubbing, cyanosis, or edema. No joint tenderness, effusion, or edema noted. No calf tenderness. Negative Homans sign bilaterally. NEUROLOGICAL: Awake and alert. Cranial nerves II through XII intact. Motor and sensory grossly within normal limits. Five out of 5 muscle strength in all muscle groups. Normal speech. Urinary Catheter: No Vascular Central Line Catheter: No Plan A/P Assessment and Plan (1) Chest pain (2) Hx of coronary artery disease (3) HTN (hypertension) (4) Hypothyroidism (5) Hyperlipidemia (6) GERD (gastroesophageal reflux disease) (7) hx dvt and pe (8) Hx of Hodgkins lymphoma (9) Near syncope Plan 60-year-old female with history of coronary artery disease, prior myocardial infarction with stent to the left main in 2013. Last stress test was normal normal. Frequent admissions for evaluation of chest pain. Also prior history of DVT and PE on Coumadin with subtherapeutic INR Chest pain, with mild elevation in troponin, [place]. Cardiology input appreciated, Dr. Jacobs evaluated, likely unstable angina. Recommends cardiac cath by Dr. Bolanos. scheduled for cath today at 12:30pm . Continue with medical management Lovenox held fro cath today, INR subtherapeutic -Continue with telemetry monitoring Continue with Plavix 75 mg by mouth daily nitroglycerin 1 inch every 6 -CT chest done, no masses. VQ scan no PE Blood pressure, initially elevated, trending down. Better now Continue with atenolol daily, increase dose to 75 mg po daily Continue nitroglycerin ointment 1 inch every 6 Continue with clonidine 0.1 mg PO every 6 when necessary Hyperlipidemia Continue with home medication, dose increased to 20mg of Atorvastatin. Patient was only taking 5 mg po daily at home. History DVT and PE, history of antiphospholipid syndrome Subtherapeutic INR -Coumadin stopped yesterday, continue Lovenox -Follow INR, today 1.5 -restart Coumadin/LOvenox after cath,if ok with Dr Bolanos Continue with Lovenox for DVT prophylaxis Needs to be premedicated before cath Continue with present treatment, CP relieved with Ntg paste. D/W RN D/W pt Blanca Brennan MD July 18, 2016 10:25
[2016-07-18] MEDS: FAMOTIDINE 20 MG TAB PO SCH ×2 (10:59→21:28)
[2016-07-18] MEDS ORDERED: HYDROCORTISONE SOD SUCCINATE 100 MG VIAL IV ONE (11:00)
[2016-07-18] MEDS ORDERED: predniSONE 20 MG TAB PO ONE (11:00)
[2016-07-18] MEDS: SODIUM CHLOR 0.9% 1000 ML INJ 1,000 ML IV SCH (11:00)
[2016-07-18] MEDS ORDERED: diphenhydrAMINE HCL 50 MG CAP PO ONE (11:00)
[2016-07-18] MEDS ORDERED: HEPARIN-NS/PF INJ 500 ML ONE (12:48)
[2016-07-18] MEDS ORDERED: MIDAZOLAM HCL 2 MG/2 ML VIAL ONE ×2 (12:48→13:50)
[2016-07-18] MEDS ORDERED: HYDROCORTISONE SOD SUCCINATE 100 MG VIAL ONE (13:51)
[2016-07-18] MEDS ORDERED: LABETALOL HCL 100 MG/20 ML VIAL ONE (14:06)
[2016-07-18] MEDS ORDERED: SODIUM CHLOR 0.9% 1000 ML INJ 1,000 ML IV SCH (14:19)
[2016-07-18] MEDS ORDERED: MISC INFORMATION XX ONE (14:30)
[2016-07-18] MEDS ORDERED: WARFARIN SOD 1 MG TAB PO ONE (21:15)
[2016-07-18] MEDS: ESZOPICLONE 3 MG TAB PO PRN (22:48)
[2016-07-19] VITALS (10 sets, daily range): BP systolic 150–159; BP diastolic 74–76; PULSE 80–100; RESP 16–18; TEMP 98.2; O2SAT 99–100
[2016-07-19] MEDS: LEVOTHYROXINE SODIUM 88 MCG TAB PO SCH (05:20)
[2016-07-19] MEDS: NITROGLYCERIN 2% OINT 1 GM PACKET TOPICAL SCH (05:21)
[2016-07-19 06:25] LABS: AUTOMATED NEUTROPHIL # 8.6 TH/MM3 (1.8-7.7); BASOPHIL % 0.1 % (0.0-2.0); HEMATOCRIT 38.1 % (35.0-46.0); HEMO FLAGS DIFF FINAL; LYMPH % 23.9 % (9.0-44.0); MEAN CELL VOLUME 84.6 FL (80.0-100.0); MEAN CORPUSCULAR HEMOGLOBIN 27.3 PG (27.0-34.0); MEAN CORPUSCULAR HGB CONC 32.3 % (32.0-36.0); MONO % 7.7 % (0.0-8.0); NEUT % 68.3 % (16.0-70.0); PLATELET COUNT 298 TH/MM3 (150-450); RED CELL DISTRIBUTION WIDTH 16.2 % (11.6-17.2); WHITE BLOOD COUNT 12.6 TH/MM3 (4.0-11.0)
[2016-07-19 06:46] LABS: INTERNATIONAL NORMALIZED RATIO 1.2 RATIO; PROTHROMBIN TIME - PATIENT 13.8 SEC (9.8-11.6)
[2016-07-19 06:50] LABS: BICARBONATE 22.8 MEQ/L (21.0-32.0); POTASSIUM 4.1 MEQ/L (3.5-5.1)
[2016-07-19] MEDS: SODIUM CHLORIDE 0.9% FLUSH 10 ML FLUSH IV FLUSH SCH (08:31)
[2016-07-19] MEDS: traMADol HCL 50 MG TAB PO PRN (08:31)
[2016-07-19] MEDS: ATORVASTATIN 20 MG TAB PO SCH (08:31)
[2016-07-19] MEDS: PANTOPRAZOLE SOD 40 MG DELAYED RELEASE TAB PO SCH (08:31)
[2016-07-19] MEDS: CLOPIDOGREL 75 MG TAB PO SCH (08:31)
[2016-07-19] MEDS ORDERED: ATENOLOL 25 MG TAB PO SCH (09:00)
[2016-07-19] MEDS: SODIUM CHLOR 0.9% 1000 ML INJ 1,000 ML IV SCH (10:23)
--- NOTE | 2016-07-19 11:15 | MA ---
cc: SERENE BOLANOS M.D., JAWED TOWNSEND, MICHAEL MD DATE 07/18/2016 PROCEDURE PERFORMED Cardiac catheterization INDICATIONS FOR CATHETERIZATION Please see the dictated H&P and dictated consult note from Dr. Jacobs. The patient has a history of left main stent placement and presented with chest pain. Because of this, it was decided to proceed with diagnostic heart catheterization. The risk of heart catheterization to include , bleeding, myocardial infarction, perforation, stent, foreseen and unforeseen complications were reviewed. The patient fully appeared to understand the risks and is willing to proceed. PROCEDURAL STATEMENT The patient was draped and prepped in the usual manner. The right femoral artery was entered using a micropuncture technique via the 4-Greek sheath. Left and right coronary catheters were used to intubate the left and right coronaries, pigtail catheter left ventricle. Multiple angiographic views were carried out. At the end of the catheterization procedure, all catheters and sheaths were removed. Manual pressure was applied until good hemostasis was achieved. The patient then transferred to the Recovery Room in stable condition. FINDINGS HEMODYNAMIC RESULTS The aortic pressure was 215/62 with a mean of 122. The left pressure is 188 with a left ventricular end diastolic pressure of 30, blood pressure dropped significantly after being given Labetalol. LEFT VENTRICULOGRAM The overall left ventricular ejection fraction was 60%. There was no evidence of significant mitral regurgitation or mural thrombus. CORONARIES The left main was large. There was a notch-like lesion in the proximal portion of the left main of about 25% which was eccentric. The left main was stented and the stent was otherwise widely patent except for that 25% lesion. The circumflex artery was a medium-sized vessel and was widely patent. It ended up in a medium-sized obtuse marginal branch that had 25-30% disease. The LAD itself was a large vessel giving off a large diagonal branch. The right coronary artery was another large dominant vessel. There was evidence of 25% disease in the proximal third of this vessel. The posterior descending artery was large. The posterolateral branches were medium. CONCLUSION Evidence of mild coronary artery disease, widely patent left main stenosis except for a 25% notch-like lesion that was mentioned above. PLAN We plan to discharge the patient today. Follow up in approximately one to two weeks time. Serene Bolanos MD, ARSENIO,GORAN TEIXEIRA/JULIUS /2:17 PM /11:04 AM
--- NOTE | 2016-07-19 11:36 | HHI.PR ---
Subjective Interval History awake aleert and oriented no more chest pain s/p cardiac cath yesterday anxious to go home no other complaints no family at bed side Vitals/Results Intake & Output 07/18/16 07/18/16 07/19/16 15:00 23:00 07:00 Intake Total 900 ml 623 ml Balance 900 ml 623 ml Intake Oral 200 ml 240 ml IV Total 700 ml 383 ml # Voids 3 2 Vital Signs Vital Signs Date Time Temp Pulse Resp B/P Pulse Ox O2 Delivery O2 Flow Rate FiO2 07/19/16 09:07 80 07/19/16 08:00 87 07/19/16 07:00 98.2 88 18 159/74 100 07/19/16 07:00 81 07/19/16 07:00 99 Room Air 07/19/16 06:00 82 07/19/16 05:00 82 07/19/16 04:00 90 07/19/16 03:20 98.2 80 16 150/76 99 07/19/16 03:20 99 Room Air 07/19/16 03:20 94 07/19/16 02:24 100 07/19/16 01:43 82 07/19/16 00:43 88 07/18/16 23:10 96 Room Air 07/18/16 23:10 98.0 82 18 122/54 96 07/18/16 23:07 82 07/18/16 22:00 88 07/18/16 21:00 83 07/18/16 20:00 89 07/18/16 19:20 89 07/18/16 19:20 98 Room Air 07/18/16 19:20 98.3 93 16 156/83 98 07/18/16 18:00 88 07/18/16 17:00 80 07/18/16 17:00 97 Room Air 07/18/16 17:00 76 07/18/16 16:00 98.7 88 16 149/66 98 07/18/16 16:00 68 07/18/16 15:00 80 07/18/16 12:45 72 07/18/16 12:00 100 Room Air 07/18/16 12:00 70 07/18/16 12:00 98.0 76 20 193/86 100 CBC/BMP: 07/19/16 0449 07/19/16 0449 Lab Results Laboratory Tests Test 07/19/16 04:49 White Blood Count 12.6 TH/MM3 Red Blood Count 4.50 MIL/MM3 Hemoglobin 12.3 GM/DL Hematocrit 38.1 % Mean Corpuscular Volume 84.6 FL Mean Corpuscular Hemoglobin 27.3 PG Mean Corpuscular Hemoglobin 32.3 % Concent Red Cell Distribution Width 16.2 % Platelet Count 298 TH/MM3 Mean Platelet Volume 9.2 FL Neutrophils (%) (Auto) 68.3 % Lymphocytes (%) (Auto) 23.9 % Monocytes (%) (Auto) 7.7 % Eosinophils (%) (Auto) 0.0 % Basophils (%) (Auto) 0.1 % Neutrophils # (Auto) 8.6 TH/MM3 Lymphocytes # (Auto) 3.0 TH/MM3 Monocytes # (Auto) 1.0 TH/MM3 Eosinophils # (Auto) 0.0 TH/MM3 Basophils # (Auto) 0.0 TH/MM3 CBC Comment DIFF FINAL Differential Comment Prothrombin Time 13.8 SEC Prothromb Time International 1.2 RATIO Ratio Sodium Level 144 MEQ/L Potassium Level 4.1 MEQ/L Chloride Level 111 MEQ/L Carbon Dioxide Level 22.8 MEQ/L Anion Gap 10 MEQ/L Blood Urea Nitrogen 19 MG/DL Creatinine 0.90 MG/DL Estimat Glomerular Filtration 63 ML/MIN Rate Random Glucose 133 MG/DL Calcium Level 8.5 MG/DL Troponin I 0.05 NG/ML Assessment/Plan Assessment/Plan Physical Exam Physical Exam GENERAL: This is a well-nourished, well-developed patient, in no apparent distress. SKIN: No rashes, ecchymoses or lesions. Cool and dry. HEAD: Atraumatic. Normocephalic. No temporal or scalp tenderness. EYES: Pupils equal round and reactive. Extraocular motions intact. No scleral icterus. No injection or drainage. ENT: Nose without bleeding, purulent drainage or septal hematoma. Throat without erythema, tonsillar hypertrophy or exudate. Uvula midline. Airway patent. NECK: Trachea midline. No JVD or lymphadenopathy. Supple, nontender, no meningeal signs. CARDIOVASCULAR: Regular rate and rhythm without murmurs, gallops, or rubs. RESPIRATORY: Clear to auscultation. Breath sounds equal bilaterally. No wheezes , rales, or rhonchi. GASTROINTESTINAL: Abdomen soft, non-tender, nondistended. No hepato-splenomegaly , or palpable masses. No guarding. MUSCULOSKELETAL: Extremities without clubbing, cyanosis, or edema. No joint tenderness, effusion, or edema noted. No calf tenderness. Negative Homans sign bilaterally. NEUROLOGICAL: Awake and alert. Cranial nerves II through XII intact. Motor and sensory grossly within normal limits. Five out of 5 muscle strength in all muscle groups. Normal speech. Urinary Catheter: No Vascular Central Line Catheter: No Plan A/P Assessment and Plan (1) Chest pain (2) Hx of coronary artery disease (3) HTN (hypertension) (4) Hypothyroidism (5) Hyperlipidemia (6) GERD (gastroesophageal reflux disease) (7) hx dvt and pe (8) Hx of Hodgkins lymphoma (9) Near syncope Plan 60-year-old female with history of coronary artery disease, prior myocardial infarction with stent to the left main in 2013. Last stress test was normal normal. Frequent admissions for evaluation of chest pain. Also prior history of DVT and PE on Coumadin with subtherapeutic INR Chest pain, with mild elevation in troponin, [place]. Cardiology input appreciated, Dr. Jacobs evaluated, likely unstable angina.s/ p cardiac cath by Dr. Bolanos. no intervention . Continue with medical management. cleared by cardiology for discharge -Continue with telemetry monitoring Continue with Plavix 75 mg by mouth daily nitroglycerin 1 inch every 6 -CT chest done, no masses. VQ scan no PE Blood pressure, initially elevated, trending down. Better now Continue with atenolol daily, increase dose to 75 mg po daily Continue nitroglycerin ointment 1 inch every 6 Continue with clonidine 0.1 mg PO every 6 when necessary Hyperlipidemia Continue with home medication, dose increased to 20mg of Atorvastatin. Patient was only taking 5 mg po daily at home. History DVT and PE, history of antiphospholipid syndrome Subtherapeutic INR 1.[address] Luis Miguel najera to start Lovenox/coumadin start Lovenox 70 mg sq q12H coumadin 2 mg po x1 today, then1 mg po daily starting tomorrow patient has Lovenox at home, with a refill, has administered Lovenox before repeat INR on Monday Dr Collazo to manage INr outpatient DVT prophylaxis D/W RN D/W pt ok to d/c home Blanca Brennan MD July 19, 2016 11:36
[2016-07-19] MEDS ORDERED: PRAV20TA2 PO (11:40)
[2016-07-19] MEDS ORDERED: ATEN25TA PO (11:40)
[2016-07-19] MEDS ORDERED: ENOX80P SQ (11:40)
[2016-07-19] MEDS ORDERED: ENOXAPARIN SODIUM 80 MG/0.8 ML SYRINGE SQ SCH (12:00)
[2016-07-19] MEDS ORDERED: WARFARIN SOD 2 MG TAB PO STA (12:17)
[2016-07-19] MEDS ORDERED: WARFARIN SOD 1 MG TAB PO SCH (16:00)
[2016-07-19] MEDS ORDERED: WARFARIN SOD 2 MG TAB PO ONE (16:00)
[2016-07-20] MEDS ORDERED: WARFARIN SOD 1 MG TAB PO SCH (16:00)
--- NOTE | 2016-07-24 18:14 | HHI.DS ---
Discharge Summary Admission Date July 15, 2016 at 16:36 Discharge Date: July 19, 2016 Admitting Diagnosis Chest pain (1) Chest pain (2) Hx of coronary artery disease (3) HTN (hypertension) (4) Hypothyroidism (5) Hyperlipidemia (6) GERD (gastroesophageal reflux disease) (7) hx dvt and pe (8) Hx of Hodgkins lymphoma (9) Near syncope Procedures cardiac cath 07/18 Imaging Last Impressions Lung Scan-VQ Nuclear Medicine 07/15/16 0000 Signed Impressions: Service Date/Time: Friday, July 15, 2016 11:20 - CONCLUSION: 1. Low probability of pulmonary embolism Dean Peterson MD Chest CT 07/15/16 0000 Signed Impressions: Service Date/Time: Friday, July 15, 2016 09:28 - CONCLUSION: 1. No evidence of acute thoracic abnormality. No masses are identified. Dean Peterson MD Chest X-Ray 07/14/16 1341 Signed Impressions: Service Date/Time: June 13:38 - CONCLUSION: Normal examination. Persistent mild right thoracic scoliosis. Surgical clips scattered across the upper abdomen. Francisco Ontiveros MD Hospital Course This a pleasant 60-year-old female known to the undersigned previous admissions , significant past medical history of coronary artery disease with previous stent to the left main, antiphospholipid syndrome with history of DVT and PE, Hodgkin's lymphoma in 1976, hyperlipidemia. Patient presented to the emergency room for evaluation of chest pain. Patient indicates she was shopping at [email or web address] when she suddenly developed midsternal sharp pain, no radiation, she broke into sweat. She took 1 nitroglycerin and then decided to walk to the front of the store and told her to come in and pay for the groceries. She went and sat in the car where the pain continued and she took another nitroglycerin. She became concerned therefore she called [facility]. While waiting for Nathalie, she developed a headache, felt clammy and sweaty and slightly short of breath. She started seeing spots and felt like she was going to pass out. Indicates that this pain was different from her prior chest discomfort when she had myocardial infarction. Patient indicates that now the pain has subsided but is still present. She doesn't want to take any narcotics as it makes her really nauseous. She she has developed hives with morphine. Patient indicates that she follows up regularly with Dr. Bolanos. At the last visit she was noted with elevated blood pressure and he started her on amlodipine however she developed a headache and stopped taking. During this admission, her blood pressure has been elevated up to 200 over 90s. She has been admitted previously for atypical chest pain. She did have a stress test at this facility in 2014 that was normal. She was stressed as outpatient per Dr. Bolanos in December and it was normal. Patient endorsed that she has noted some chest pain and also pain to her back between shoulder blades every time she rides her bike which improves with rest. Stated she follows up regularly with her oncologist Dr. Trujillo for history of Hodgkin's lymphoma. She recently had a liver biopsy in February 2016 which was negative. She does not recall when the last time she had a CT of the chest done. In the emergency room, patient was evaluated in troponin was noted minimally elevated, it did not trended upwards. The rest of her laboratory workup was essentially unremarkable except for mild elevation in creatinine. She was on Coumadin, INR was subtherapeutic at 1.6. She received Lovenox 70 mg 1 in the emergency room. Patient was examined in the presence of her , she was slightly anxious indicated that the pain was still present. Patient was admitted for further evaluation and treatment. (1) Chest pain (2) Hx of coronary artery disease (3) HTN (hypertension) (4) Hypothyroidism (5) Hyperlipidemia (6) GERD (gastroesophageal reflux disease) (7) hx dvt and pe (8) Hx of Hodgkins lymphoma (9) Near syncope During the course of the hospitalization, the following took place: 60-year-old female with history of coronary artery disease, prior myocardial infarction with stent to the left main in 2013. Last stress test was normal normal. Frequent admissions for evaluation of chest pain. Also prior history of DVT and PE on Coumadin with subtherapeutic INR Chest pain, with mild elevation in troponin, [place]. Cardiology input appreciated, Dr. Jacobs evaluated, likely unstable angina. Cath recommended. .s/p cardiac cath by Dr. Bolanos. no intervention . Continued with medical management. -cleared by cardiology for discharge -Continue with telemetry monitoring Continued with Plavix 75 mg by mouth daily nitroglycerin 1 inch every 6 initially given. -CT chest done, no masses. VQ scan no PE Blood pressure, initially elevated, trending down. Continue with atenolol daily, increased dose to 75 mg po daily Continue with clonidine 0.1 mg PO every 6 when necessary Hyperlipidemia Continue with home medication, dose increased to 20mg of Atorvastatin. Patient was only taking 5 mg po daily at home. History DVT and PE, history of antiphospholipid syndrome Subtherapeutic INR discussed with Dr Luis Miguel najera to start Lovenox/coumadin started Lovenox 70 mg sq q12H coumadin 2 mg po x1 day of dc, then1 mg po daily starting tomorrow patient has Lovenox at home, with a refill, has administered Lovenox before instructed to repeat INR on Monday Dr Collazo to manage INR outpatient Pt. stable for dc, no longer having CP Discharged home Pt Condition on Discharge: Stable Discharge Disposition: Discharge Home Discharge Instructions DIET: Follow Instructions for: Heart Healthy Diet Activities you can perform: Weight Bearing as Jesus Alberto Follow up Referrals: PCP Follow-up - 1 Week New Medications: Pravastatin (Pravastatin) 20 Mg Tab 20 MG PO DAILY Cholesterol Management #30 Ref 0 TAB Atenolol (Atenolol) 25 Mg Tab 75 MG PO DAILY htn Days 30 TAB Enoxaparin Inj (Lovenox Inj) 80 mg/0.8 ML Syr 70 MG SQ Q12H anticoag Days 7 INJECTION Continued Medications: Clopidogrel (Plavix) 75 Mg Tab 75 MG PO DAILY Blood Clot Prevention #30 Ref 0 TAB Denosumab Inj (Prolia Inj) 60 Mg/Ml Inj 60 MG SQ Q180D Ref 0 VIAL Dexlansoprazole (Dexilant) 60 Mg Cap 60 MG PO DAILY #30 Ref 0 CAP Eszopiclone (Lunesta) 3 Mg Tab 3 MG PO HS PRN INSOMNIA Ref 0 TAB Levothyroxine (Levothyroxine) 88 Mcg Tab 88 MCG PO DAILY Thyroid #30 Ref 0 TAB Magnesium (Magnesium) 500 Mg Tab 500 MG PO HS Nutritional Supplement Ref 0 TAB Nitroglycerin SL (Nitrostat SL) 0.4 Mg Subl 0.4 MG SL DIRECTED 1 tablet under the tongue as needed for chest pain. Repeat every 5 minutes for a total of 3 DOSES or call 911 if NO relief. PRN CHEST PAIN #100 Ref 0 TAB.SL Tramadol (Tramadol) 50 Mg Tab 50 MG PO BID PRN PAIN Ref 0 TAB Warfarin (Coumadin) 1 Mg Tab 1 MG PO MoWeFrSa @ 1600 Prevent Blood Clot #30 Ref 0 TAB Discontinued Medications: Atenolol (Atenolol) 50 Mg Tab 50 MG PO DAILY @ 1800 Blood Pressure Management #30 Ref 0 TAB No Kaye July 24, 2016 18:14
== END 2016-07-19 12:38 | disposition home or self-care (01) | DRG 287 ==
LOC: NEPE 13:35 → NEDA 20:07 → NEPHCDU 23:09 → OBSVTOIN 07-15 16:36 → HCIN 07-16 11:49
PROVIDERS: ADMIT Specialist; ATTEND Specialist
PROC: B2111ZZ Fluoroscopy of Multiple Coronary Arteries using Low Osmolar Contrast (ICD-10-PCS; 2016-07-18)
PROC: B2151ZZ Fluoroscopy of Left Heart using Low Osmolar Contrast (ICD-10-PCS; 2016-07-18)
PROC: 4A023N7 Measurement of Cardiac Sampling and Pressure, Left Heart, Percutaneous Approach (ICD-10-PCS; principal; 2016-07-18 13:00)
DX: I25.110 Atherosclerotic heart disease of native coronary artery with unstable angina pectoris (principal); D68.61 Antiphospholipid syndrome; M41.9 Scoliosis, unspecified; I10 Essential (primary) hypertension; E03.9 Hypothyroidism, unspecified; E78.5 Hyperlipidemia, unspecified; G89.29 Other chronic pain; I25.2 Old myocardial infarction; J45.909 Unspecified asthma, uncomplicated; K21.9 Gastro-esophageal reflux disease without esophagitis; Z79.01 Long term (current) use of anticoagulants; Z79.02 Long term (current) use of antithrombotics/antiplatelets; Z85.71 Personal history of Hodgkin lymphoma; Z86.711 Personal history of pulmonary embolism; Z86.718 Personal history of other venous thrombosis and embolism; Z87.11 Personal history of peptic ulcer disease; Z90.81 Acquired absence of spleen; Z95.1 Presence of aortocoronary bypass graft; Z95.5 Presence of coronary angioplasty implant and graft
CPT/HCPCS: 71010; 71250; 76937; 78582; 80048; 80053; 80061; 82550; 82552; 83735; 84439; 84443; 84484; 85007; 85025; 85027; 85610; 85652; 85730; 93005; 93306; 93458; 96372; 96374; 96375; 96376; A9540; A9567; C1769; C1893; J1170; J1644; J1650; J1720; J2250; J2405; J3010; J7030; J7512; Q0163; Q9967

== ENCOUNTER → 2016-07-22 | Outpatient (CLI) | payer MEDICARE ==
[~2016-07-22] MED LIST changes: -AMLO5 PO; +ATEN25TA PO; -ATEN50TA PO; +ENOX80P SQ; +ESZO3TAB4 PO; +PRAV20TA2 PO
[2016-07-22 10:03] LABS: INTERNATIONAL NORMALIZED RATIO 2.9 RATIO; PROTHROMBIN TIME - PATIENT 33.1 SEC (9.8-11.6)
== END ==
LOC: CLAB 09:20
DX: I82.403 Acute embolism and thrombosis of unspecified deep veins of lower extremity, bilateral (principal)
CPT/HCPCS: 36415; 85610

== ENCOUNTER → 2016-07-27 | Outpatient (CLI) | payer MEDICARE ==
[2016-07-27 08:46] LABS: INTERNATIONAL NORMALIZED RATIO 2.1 RATIO; PROTHROMBIN TIME - PATIENT 24.1 SEC (9.8-11.6)
== END ==
LOC: CLAB 08:10
DX: I82.403 Acute embolism and thrombosis of unspecified deep veins of lower extremity, bilateral (principal)
CPT/HCPCS: 36415; 85610

== ENCOUNTER → 2016-08-09 | Outpatient (CLI) | payer MEDICARE ==
[2016-08-09 10:29] LABS: AUTOMATED NEUTROPHIL # 5.3 TH/MM3 (1.8-7.7); BASOPHIL % 0.3 % (0.0-2.0); EOSINOPHIL # 0.1 TH/MM3 (0-0.4); EOSINOPHIL % 0.5 % (0.0-4.0); HEMATOCRIT 41.3 % (35.0-46.0); HEMO FLAGS DIFF FINAL; LYMPH % 33.7 % (9.0-44.0); LYMPHOCYTE # 3.2 TH/MM3 (1.0-4.8); MEAN CELL VOLUME 86.5 FL (80.0-100.0); MEAN CORPUSCULAR HEMOGLOBIN 27.8 PG (27.0-34.0); MEAN CORPUSCULAR HGB CONC 32.1 % (32.0-36.0); NEUT % 56.5 % (16.0-70.0); PLATELET COUNT 311 TH/MM3 (150-450); RED BLOOD COUNT 4.77 MIL/MM3 (4.00-5.30); RED CELL DISTRIBUTION WIDTH 18.3 % (11.6-17.2); WHITE BLOOD COUNT 9.5 TH/MM3 (4.0-11.0)
[2016-08-09 10:41] LABS: ANION GAP 7 MEQ/L (5-15); AST (GOT) 20 U/L (15-37); BICARBONATE 26.9 MEQ/L (21.0-32.0); BLOOD UREA NITROGEN 26 MG/DL (7-18); CHLORIDE 109 MEQ/L (98-107); GLOMERULAR FILTRATION RATE 58 ML/MIN (>89); GLUCOSE,FASTING 92 MG/DL (74-99); POTASSIUM 4.7 MEQ/L (3.5-5.1); SODIUM (NA) 143 MEQ/L (136-145)
[2016-08-09 10:52] LABS: ALKALINE PHOSPHATASE 47 U/L (45-117); ALT (GPT) 34 U/L (10-53); HDL CHOLESTEROL 71.1 MG/DL (40.0-60.0); LDL CHOLESTEROL 113 MG/DL (0-99); TOTAL BILIRUBIN ADULT 0.4 MG/DL (0.2-1.0)
[2016-08-09 10:54] LABS: CREATINE KINASE 41 U/L (26-192)
== END ==
LOC: CLAB 09:54
DX: E78.5 Hyperlipidemia, unspecified (principal); I10 Essential (primary) hypertension; E03.9 Hypothyroidism, unspecified
CPT/HCPCS: 36415; 80053; 80061; 82550; 84443; 85025

== ENCOUNTER → 2016-08-31 | Outpatient (CLI) | payer MEDICARE ==
[2016-08-31 11:26] LABS: INTERNATIONAL NORMALIZED RATIO 3.2 RATIO; PROTHROMBIN TIME - PATIENT 37.8 SEC (9.8-11.6)
== END ==
LOC: CLAB 10:44
DX: I82.403 Acute embolism and thrombosis of unspecified deep veins of lower extremity, bilateral (principal)
CPT/HCPCS: 36415; 85610

== ENCOUNTER → 2016-09-09 | Outpatient (CLI) | payer MEDICARE ==
[2016-09-09 09:31] LABS: FOLLICLE STIMULATING HORMONE 87.7 mIU/mL
[2016-09-09 16:57] LABS: HEMOGLOBIN A1a 1.4 %; HEMOGLOBIN A1b 2.2 %; HEMOGLOBIN Ao 82.2 %; HEMOGLOBIN LA1C 2.2 %; HEMOGLOBIN P3 4.7 %
[2016-09-12 16:16] LABS: ESTRADIOL <10 pg/mL (())
== END ==
LOC: CLAB 08:26
PROVIDERS: ATTEND Internal Medicine Hematology
DX: D68.2 Hereditary deficiency of other clotting factors (principal); M81.0 Age-related osteoporosis without current pathological fracture; Z12.31 Encounter for screening mammogram for malignant neoplasm of breast
CPT/HCPCS: 36415; 82670; 82679; 83001; 83036

== ENCOUNTER → 2016-09-15 | Outpatient (CLI) | payer MEDICARE ==
[2016-09-15 10:52] LABS: INTERNATIONAL NORMALIZED RATIO 2.8 RATIO
== END ==
LOC: CLAB 10:16
DX: I82.403 Acute embolism and thrombosis of unspecified deep veins of lower extremity, bilateral (principal)
CPT/HCPCS: 36415; 85610

== ENCOUNTER → 2016-09-21 | Outpatient (CLI) | payer MEDICARE ==
[2016-09-21 11:05] LABS: AUTOMATED NEUTROPHIL # 5.3 TH/MM3 (1.8-7.7); BASOPHIL % 0.5 % (0.0-2.0); EOSINOPHIL # 0.2 TH/MM3 (0-0.4); HEMO FLAGS DIFF FINAL; LYMPH % 32.6 % (9.0-44.0); LYMPHOCYTE # 3.1 TH/MM3 (1.0-4.8); MEAN CELL VOLUME 89.5 FL (80.0-100.0); MEAN CORPUSCULAR HEMOGLOBIN 29.2 PG (27.0-34.0); MEAN CORPUSCULAR HGB CONC 32.6 % (32.0-36.0); MONO % 8.9 % (0.0-8.0); PLATELET COUNT 327 TH/MM3 (150-450); RED BLOOD COUNT 4.81 MIL/MM3 (4.00-5.30); RED CELL DISTRIBUTION WIDTH 16.5 % (11.6-17.2); WHITE BLOOD COUNT 9.5 TH/MM3 (4.0-11.0)
[2016-09-21 11:11] LABS: BACTERIA, URINE RARE /hpf; BLOOD, URINE NEG (NEG); GLUCOSE,URINE NEG (NEG); HYALINE CAST, URINE 43 /lpf (RARE); KETONE, URINE NEG (NEG); MUCUS URINE FEW /lpf (OCC); NITRITE,URINE NEG (NEG); PH, URINE 6.5 (5.0-8.5); SQUAMOUS EPITHELIAL CELL URINE 2 /hpf (0-5); URINE COLOR YELLOW (YELLW/STRAW)
[2016-09-22 10:46] LABS: ALT (GPT) 30 U/L (10-53)
[2016-09-22 10:49] LABS: ANION GAP 6 MEQ/L (5-15); AST (GOT) 40 U/L (15-37); BICARBONATE 23.1 MEQ/L (21.0-32.0); BLOOD UREA NITROGEN 15 MG/DL (7-18); CHLORIDE 110 MEQ/L (98-107); GLOMERULAR FILTRATION RATE 60 ML/MIN (>89); GLUCOSE,FASTING 119 MG/DL (74-99); SODIUM (NA) 139 MEQ/L (136-145)
[2016-09-22 10:50] LABS: POTASSIUM 5.2 MEQ/L (3.5-5.1)
[2016-09-22 10:55] LABS: ALKALINE PHOSPHATASE 50 U/L (45-117); TOTAL BILIRUBIN ADULT 0.6 MG/DL (0.2-1.0)
== END ==
LOC: CLAB 10:02
DX: I10 Essential (primary) hypertension (principal); E78.5 Hyperlipidemia, unspecified
CPT/HCPCS: 36415; 80053; 81001; 84443; 85025

== ENCOUNTER → 2016-10-26 | Outpatient (CLI) | payer MEDICARE ==
[2016-10-26 14:08] LABS: INTERNATIONAL NORMALIZED RATIO 1.6 RATIO; PROTHROMBIN TIME - PATIENT 17.9 SEC (9.8-11.6)
== END ==
LOC: CLAB 13:38
DX: I82.5Z9 Chronic embolism and thrombosis of unspecified deep veins of unspecified distal lower extremity (principal)
CPT/HCPCS: 36415; 85610

== ENCOUNTER → 2016-11-02 | Outpatient (CLI) | payer MEDICARE ==
[2016-11-02 10:26] LABS: PROTHROMBIN TIME - PATIENT 22.6 SEC (9.8-11.6)
[2016-11-02 10:46] LABS: ANION GAP 8 MEQ/L (5-15); AST (GOT) 11 U/L (15-37); BICARBONATE 24.6 MEQ/L (21.0-32.0); BLOOD UREA NITROGEN 27 MG/DL (7-18); CHLORIDE 104 MEQ/L (98-107); GLOMERULAR FILTRATION RATE 54 ML/MIN (>89); GLUCOSE,FASTING 158 MG/DL (74-99); POTASSIUM 4.1 MEQ/L (3.5-5.1); SODIUM (NA) 137 MEQ/L (136-145)
[2016-11-02 10:47] LABS: ALT (GPT) 26 U/L (10-53)
[2016-11-02 10:49] LABS: ALKALINE PHOSPHATASE 56 U/L (45-117); HDL CHOLESTEROL 94.2 MG/DL (40.0-60.0); LDL CHOLESTEROL 104 MG/DL (0-99); TOTAL BILIRUBIN ADULT 0.5 MG/DL (0.2-1.0)
== END ==
LOC: CLAB 09:39
DX: E78.5 Hyperlipidemia, unspecified (principal); I82.5Z9 Chronic embolism and thrombosis of unspecified deep veins of unspecified distal lower extremity
CPT/HCPCS: 36415; 80053; 80061; 85610

== ENCOUNTER → 2016-11-25 | Outpatient (CLI) | payer MEDICARE ==
[2016-11-25 10:42] LABS: INTERNATIONAL NORMALIZED RATIO 2.5 RATIO; PROTHROMBIN TIME - PATIENT 28.3 SEC (9.8-11.6)
== END ==
LOC: CLAB 10:01
DX: I82.5Z9 Chronic embolism and thrombosis of unspecified deep veins of unspecified distal lower extremity (principal)
CPT/HCPCS: 36415; 85610

== ENCOUNTER → 2016-12-02 | Outpatient (CLI) | payer MEDICARE ==
[2016-12-02 15:53] LABS: INTERNATIONAL NORMALIZED RATIO 1.9 RATIO; PROTHROMBIN TIME - PATIENT 21.9 SEC (9.8-11.6)
== END ==
LOC: CLAB 15:22
DX: I82.5Z9 Chronic embolism and thrombosis of unspecified deep veins of unspecified distal lower extremity (principal)
CPT/HCPCS: 36415; 85610

== ENCOUNTER → 2016-12-12 | Outpatient (CLI) | payer MEDICARE ==
[2016-12-12 12:05] LABS: INTERNATIONAL NORMALIZED RATIO 2.8 RATIO; PROTHROMBIN TIME - PATIENT 32.4 SEC (9.8-11.6)
== END ==
LOC: CLAB 11:21
DX: I82.5Z9 Chronic embolism and thrombosis of unspecified deep veins of unspecified distal lower extremity (principal)
CPT/HCPCS: 36415; 85610

== ENCOUNTER → 2016-12-14 | Outpatient (CLI) | payer MEDICARE | LOC: CLAB 12:54 | PROVIDERS: ATTEND Specialist | DX: T78.3XXA Angioneurotic edema, initial encounter (principal) | CPT/HCPCS: 36415; 82785; 86003 ==

== ENCOUNTER → 2016-12-19 | Outpatient (CLI) | payer MEDICARE ==
[2016-12-19 10:32] LABS: BICARBONATE 23.9 MEQ/L (21.0-32.0); POTASSIUM 4.4 MEQ/L (3.5-5.1)
== END ==
LOC: CLAB 09:35
DX: I10 Essential (primary) hypertension (principal)
CPT/HCPCS: 36415; 80048

== ENCOUNTER → 2017-01-10 | Outpatient (CLI) | payer MEDICARE ==
[2017-01-10 11:39] LABS: PROTHROMBIN TIME - PATIENT 23.2 SEC (9.8-11.6)
== END ==
LOC: CLAB 11:01
DX: I82.5Z9 Chronic embolism and thrombosis of unspecified deep veins of unspecified distal lower extremity (principal)
CPT/HCPCS: 36415; 85610

== ENCOUNTER → 2017-02-22 | Outpatient (CLI) | payer MEDICARE ==
[~2017-02-22] MED LIST changes: -ATEN25TA PO; +Acet-Butal-Caff 325-50-40 Mg PO; +DEXI30CA2; -DEXI60CA PO; -ENOX80P SQ; -ESZO3TAB4 PO; +LEVO25TA4 PO; -LEVO88TA2 PO; -MAGN500T4 PO; +MECL1TAB42 PO; +METO-309 PO; +NIFE30TA8 PO; -PRAV20TA2 PO
== END ==
LOC: CLAB 09:48
DX: E03.9 Hypothyroidism, unspecified (principal)
CPT/HCPCS: 36415; 84443

== ENCOUNTER → 2017-03-09 | Outpatient (CLI) | payer MEDICARE ==
[2017-03-09 11:26] LABS: INTERNATIONAL NORMALIZED RATIO 1.8 RATIO; PROTHROMBIN TIME - PATIENT 18.2 SEC (9.8-11.6)
== END ==
LOC: CLAB 10:51
DX: I82.5Z9 Chronic embolism and thrombosis of unspecified deep veins of unspecified distal lower extremity (principal)
CPT/HCPCS: 36415; 85610

== ENCOUNTER → 2017-03-20 | Outpatient (CLI) | payer MEDICARE ==
[2017-03-20 10:28] LABS: INTERNATIONAL NORMALIZED RATIO 1.4 RATIO; PROTHROMBIN TIME - PATIENT 13.8 SEC (9.8-11.6)
== END ==
LOC: CLAB 09:45
DX: E03.9 Hypothyroidism, unspecified (principal); I82.5Z9 Chronic embolism and thrombosis of unspecified deep veins of unspecified distal lower extremity
CPT/HCPCS: 36415; 84443; 85610

== ENCOUNTER 2017-04-04 20:14 | Emergency (ER) | payer MEDICARE ==
[2017-04-04 20:20] VITALS: BP 221/99; PULSE 91; RESP 18; O2SAT 95
[2017-04-04] MEDS ORDERED: hydrALAZINE HCL 20 MG/ML VIAL IV PUSH ONE (20:30)
[2017-04-04] MEDS ORDERED: OXYMETAZOLINE HCL 0.05% 15 ML NASAL SPRAY NASAL ONE (20:30)
[2017-04-04] MEDS ORDERED: ESZO2 PO (20:35)
[2017-04-04] MEDS ORDERED: LEVO75TA3 PO (20:35)
--- NOTE | 2017-04-04 20:35 | PD ---
HPI Chief Complaint: Nosebleed Time Seen by Provider: 20:30 Travel History International Travel<30 days: No Contact w/Intl Traveler<30days: No Traveled to known affect area: No History of Present Illness HPI 61yo F with PMH of hodkin's lymphoma, HTN, CAD, DVT here with c/o epistaxis. Said she had sinus biopsy by ENT Dr. Thompson this afternoon and started having more epistaxis at 6:30pm tonight. Said she held her coumadin and plavix for a few days for the surgery. Said she last took lovenox last night. Denies any chest pain, sob, n/v, abdominal pain, focal weakness or numbness. PFSH Past Medical History Hx Anticoagulant Therapy: Yes Asthma: Yes Blood Disorders: Yes (HX OF DVT'S) Anxiety: No Depression: No Heart Rhythm Problems: Yes (EXTRA BEATS) Cancer: Yes (HODGKIN'S LYMPHOMA) Cardiac Catheterization: Yes Cardiovascular Problems: Yes High Cholesterol: Yes Chest Pain: Yes Congestive Heart Failure: No COPD: No Cerebrovascular Accident: No Diminished Hearing: No Deep Vein Thrombosis: Yes (BILATERAL LOWER EXTS) Endocrine: Yes Gastrointestinal Disorders: Yes (GERD, ULCER) GERD: Yes Glaucoma: No Genitourinary: Yes (KIDNEY STONES) Headaches: Yes Hepatitis: No Hiatal Hernia: No Heparin Induced Thrombocytopen: Yes Hypertension: Yes Immune Disorder: Yes (IMMUNOCOMPROMISED SINCE SPLEEN REMOVED) Implanted Vascular Access Dvce: Yes Kidney Stones: Yes Musculoskeletal: No Neurologic: Yes (NEUROPATHY IN LEGS) Psychiatric: No Reproductive: No Respiratory: Yes (PE) Immunizations Current: Yes Migraines: Yes Myocardial Infarction: Yes Pancreatitis: Yes Radiation Therapy: Yes Renal Failure: No Seizures: No Sickle Cell Disease: No Sleep Apnea: No Thyroid Disease: Yes (HYPOTHYROID) Ulcer: Yes ?: Not Menopausal: Yes Past Surgical History Abdominal Surgery: Yes (SPLENCTOMY) AICD: No Appendectomy: Yes Arteriovenous Shunt: No Body Medical Devices: RODS AND SCREWS IN BACK,SINUS SX (TITANIUM)CLIPS -HODG, stents Cholecystectomy: Yes Coronary Artery Bypass Graft: Yes (angioplasty) Coronary Stent: Yes Endocrine Surgery: Yes (HODGKINS TUMORS REMOVED) Genitourinary Surgery: Yes (REMOVAL OF KIDNEY STONES) Gynecologic Surgery: Yes (HYSTERECTOMY) Hysterectomy: Yes Insulin Pump: No Joint Replacement: Yes (Rods from s1 and L5) Neurologic Surgery: No Pacemaker: No Other Surgery: Yes (tumor removal, sinus surgery) Family History Family Myocardial Infarction: Yes (MOTHER HAD A AR) Social History Alcohol Use: No Tobacco Use: No Substance Use: No Allergies-Medications (Allergen,Severity, Reaction): Coded Allergies: aspirin (Unverified Allergy, Severe, ASTHMA, 04/04/17) cortisone (Unverified Allergy, Severe, Hives, 04/04/17) diatrizoate meglumine (Unverified Allergy, Severe, Hives, 04/04/17) gadobenic acid (Unverified Allergy, Severe, Hives, 04/04/17) gadodiamide (Unverified Allergy, Severe, Hives, 04/04/17) gadoteridol (Unverified Allergy, Severe, Hives, 04/04/17) iodixanol (Unverified Allergy, Severe, Hives, 04/04/17) iohexol (Unverified Allergy, Severe, Hives, 04/04/17) oxycodone (Unverified Allergy, Severe, 04/04/17) PT STATES PANCREATITIS prochlorperazine (Unverified Allergy, Severe, LOSS OF FACIAL MUSCLE CONTROL, 04/04/17) levofloxacin (Unverified Allergy, Mild, AGGRAVATES LIVER, 04/04/17) morphine (Unverified Allergy, Mild, Hives, 04/04/17) LOCALIZED AT INJECTION SITE. bee venom protein (honey bee) (Unverified Allergy, Unknown, HIVES AND SWELLING, 04/04/17) Reported Meds & Prescriptions Reported Meds & Active Scripts Active Nifedipine ER 24 HR (Nifedipine) 30 Mg Tab 30 Mg PO DAILY Meclizine 25 (Meclizine HCl) 25 Mg Tab 25 Mg PO Q6H PRN 30 Days [Fjer-Aopcm-Udaq 325-50-40 Mg] 1 TAB Tab 1 Tab PO Q8H PRN Lopressor (Metoprolol Tartrate) 50 Mg Tab 50 Mg PO Q12HR 30 Days Reported Lunesta (Eszopiclone) 2 Mg Tab 3 Mg PO HS PRN Levothyroxine (Levothyroxine Sodium) 75 Mcg Tab 75 Mcg PO DAILY Dexilant (Dexlansoprazole) 30 Mg Javi.bp 10 Mg Nitrostat SL (Nitroglycerin) 0.4 Mg Subl 0.4 Mg SL DIRECTED PRN 1 tablet under the tongue as needed for chest pain. Repeat every 5 minutes for a total of 3 DOSES or call 911 if NO relief. Tramadol (Tramadol HCl) 50 Mg Tab 50 Mg PO BID PRN Coumadin (Warfarin) 1 Mg Tab 1 Mg PO MOWEFRSA @ 1600 Plavix (Clopidogrel Bisulfate) 75 Mg Tab 75 Mg PO DAILY Review of Systems Except as stated in HPI: all other systems reviewed are Neg Physical Exam Narrative GENERAL: 61yo F in mild distress. SKIN: Focused skin assessment warm/dry. HEAD: Atraumatic. Normocephalic. EYES: Pupils equal and round. No scleral icterus. No injection or drainage. ENT: +oozing from bilateral nose. No blood in posterior pharynx. NECK: Trachea midline. No JVD. CARDIOVASCULAR: Regular rate and rhythm. No murmur appreciated. RESPIRATORY: No accessory muscle use. Clear to auscultation. Breath sounds equal bilaterally. GASTROINTESTINAL: Abdomen soft, non-tender, nondistended. Hepatic and splenic margins not palpable. MUSCULOSKELETAL: No obvious deformities. No clubbing. No cyanosis. No edema. NEUROLOGICAL: Awake and alert. No obvious cranial nerve deficits. Motor grossly within normal limits. Normal speech. PSYCHIATRIC: Appropriate mood and affect; insight and judgment normal. Data Data Last Documented VS Vital Signs Date Time Temp Pulse Resp B/P (MAP) Pulse Ox O2 Delivery O2 Flow Rate FiO2 04/04/17 21:06 200/94 (129) 04/04/17 20:20 91 18 95 Orders Orders Hydralazine Inj (Apresoline Inj) (04/04/17 20:30) Oxymetazoline 0.05% Lonny Harmon (Afrin 0.0 (04/04/17 20:30) Lorazepam Inj (Ativan Inj) (04/04/17 21:15) Morphine Inj (Morphine Inj) (04/04/17 21:25) Acetamin-Hydrocod 325-7.5 Mg ([place] 7.5 (04/04/17 21:45) Ondansetron Odt (Zofran Odt) (04/04/17 21:45) Amoxicil-Clavulanate (Augmentin) (04/04/17 22:00) Metoprolol Tartrate (Lopressor) (04/04/17 22:15) [facility] Medical Decision Making Medical Screen Exam Complete: Yes Emergency Medical Condition: Yes Differential Diagnosis Epistaxis from biopsy Narrative Course 61yo F with epistaxis after sinus biopsy by Dr. Thompson today. Pt said she had her INR check today and it was good so he was able to do the surgery. Afrin spray was used and pt was still bleeding after holding pressure. Pt started having some blood coming out of her right eye. I spoke with Dr. Damon who is government contracts manager for Dr. Thompson and he said that it is very common and agree to place bilateral nasal packing and have pt see Dr. Thompson tomorrow. Pt is very anxious so gave ativan 1mg IM. I was able to place bilateral nasal packing after 1 dose of lortab. Pt said she has antibiotics but starting tomorrow so will take 1 dose now. Pt given augmentin. Said she does not need prescription. Pt has hydrocodone at home for pain. She also did not take her blood pressure medication. Pt given metoprolol 50mg PO and nifedipine 30mg PO. Said pain is better. Offer observation if she is still in too much pain but pt prefer to go home and see Dr. Thompson tomorrow. Pt has been observed and no more bleeding. No blood in posterior pharynx. Procedures Procedure Narrative Placed bilateral nasal packing 5.5 cm in each nare. Diagnosis Primary Impression: Epistaxis Patient Instructions: General Instructions Departure Forms: Tests/Procedures Additional Instructions: Please follow up with Dr. Thompson tomorrow. Return to the ED if symptoms worsen. Please take the antibiotics and pain medication that you have from Dr. Thompson. Med/Other Pt SpecificInfo: No Change to Meds Disposition: 01 DISCHARGE HOME Condition: Stable Jennifer White DO Apr 04, 2017 20:35
[2017-04-04 21:06] VITALS: BP 200/94
[2017-04-04] MEDS ORDERED: LORazepam 2 MG/ML VIAL IM ONE (21:15)
[2017-04-04] MEDS ORDERED: MORPHINE SULFATE 4 MG/ML INJ ONE (21:25)
[2017-04-04] MEDS ORDERED: ONDANSETRON ODT 4 MG TAB PO ONE (21:45)
[2017-04-04] MEDS ORDERED: ACETAMINOPHEN/HYDROcodone 325 MG/7.5 MG TAB PO ONE (21:45)
[2017-04-04] MEDS ORDERED: AMOXICILLIN/CLAVULANATE K 875 MG TAB PO ONE (22:00)
[2017-04-04] MEDS ORDERED: METOPROLOL TARTRATE 50 MG TAB PO ONE (22:15)
[2017-04-04] MEDS ORDERED: NIFEdipine 30 MG SUSTAINED RELEASE TAB PO ONE (22:30)
[2017-04-04 22:39] VITALS: BP 191/90; PULSE 83; RESP 18; O2SAT 95
[2017-04-04] MEDS ORDERED: ACETAMINOPHEN/HYDROcodone 325 MG/5 MG TAB PO ONE (22:45)
== END 2017-04-04 22:53 | disposition home or self-care (01) ==
LOC: NEPD 20:14
DX: R04.0 Epistaxis (principal); C81.90 Hodgkin lymphoma, unspecified, unspecified site; E03.9 Hypothyroidism, unspecified; I10 Essential (primary) hypertension; I25.2 Old myocardial infarction; Z79.01 Long term (current) use of anticoagulants; Z79.02 Long term (current) use of antithrombotics/antiplatelets
CPT/HCPCS: 30901; 96372; 99283; J2060; J2270

== ENCOUNTER → 2017-04-13 | Outpatient (CLI) | payer MEDICARE ==
[~2017-04-13] MED LIST changes: -DENO60P SQ; +ESZO2 PO; -LEVO25TA4 PO; +LEVO75TA3 PO
== END ==
LOC: CLAB 11:17
PROVIDERS: ATTEND Otolaryngology Otolaryngology/Facial Plastic Surgery
DX: J32.9 Chronic sinusitis, unspecified (principal)
CPT/HCPCS: 36415; 82164; 86021

== ENCOUNTER → 2017-05-18 | Outpatient (CLI) | payer MEDICARE | LOC: CLAB 11:17 | DX: E03.9 Hypothyroidism, unspecified (principal) | CPT/HCPCS: 36415; 84443 ==

== ENCOUNTER → 2017-08-17 | Outpatient (CLI) | payer MEDICARE ==
[2017-08-17 10:00] LABS: AUTOMATED NEUTROPHIL # 6.6 TH/MM3 (1.8-7.7); BASOPHIL # 0.1 TH/MM3 (0-0.2); BASOPHIL % 0.7 % (0.0-2.0); EOSINOPHIL # 0.5 TH/MM3 (0-0.4); EOSINOPHIL % 4.5 % (0.0-4.0); HEMATOCRIT 35.3 % (35.0-46.0); LYMPH % 26.2 % (9.0-44.0); LYMPHOCYTE # 2.9 TH/MM3 (1.0-4.8); MEAN CELL VOLUME 82.8 FL (80.0-100.0); MEAN CORPUSCULAR HEMOGLOBIN 25.7 PG (27.0-34.0); MEAN PLATELET VOLUME 9.6 FL (7.0-11.0); MONO % 9.4 % (0.0-8.0); NEUT % 59.2 % (16.0-70.0); PLATELET COUNT 521 TH/MM3 (150-450); RED BLOOD COUNT 4.27 MIL/MM3 (4.00-5.30); RED CELL DISTRIBUTION WIDTH 15.4 % (11.6-17.2); WHITE BLOOD COUNT 11.1 TH/MM3 (4.0-11.0)
[2017-08-17 10:19] LABS: ALBUMIN 3.2 GM/DL (3.4-5.0); AST (GOT) 18 U/L (15-37); BICARBONATE 27.2 MEQ/L (21.0-32.0); BLOOD UREA NITROGEN 12 MG/DL (7-18); CALCIUM 9.6 MG/DL (8.5-10.1); CHLORIDE 101 MEQ/L (98-107); CREATININE 0.94 MG/DL (0.50-1.00); GLOMERULAR FILTRATION RATE 60 ML/MIN (>89); GLUCOSE,FASTING 136 MG/DL (74-99); SODIUM (NA) 139 MEQ/L (136-145)
[2017-08-17 10:21] LABS: ALT (GPT) 17 U/L (10-53)
[2017-08-17 10:23] LABS: ALKALINE PHOSPHATASE 129 U/L (45-117); TOTAL BILIRUBIN ADULT 0.3 MG/DL (0.2-1.0); TOTAL PROTEIN 7.2 GM/DL (6.4-8.2)
[2017-08-17 17:12] LABS: HEMOGLOBIN A1C 6.8 % (4.3-6.0)
== END ==
LOC: CLAB 09:15
DX: I10 Essential (primary) hypertension (principal); R73.01 Impaired fasting glucose
CPT/HCPCS: 36415; 80053; 83036; 85025